=== PATIENT | female | born 1955 | race Caucasian/White ===

== ENCOUNTER 2024-10-16 10:24 | Inpatient (IN) | payer MEDICARE, OTHER, SELFPAY ==
[2024-10-16] VITALS (7 sets, daily range): BP systolic 119–144; BP diastolic 63–79; PULSE 98–117; RESP 17–96; TEMP 36.7–37.3; O2SAT 93–98; BMI 45.4
--- NOTE | 2024-10-16 11:05 | XR_ITS ---
Examination: CT abdomen with intravenous contrast CT pelvis with intravenous contrast 2-D coronal reconstructions 2-D sagittal reconstructions Date and time of exam:October 16, 2024, 1413 hours, comparison August 28, 2021 INDICATIONS: Onset right lower abdominal pain with nausea and vomiting today. CTDI: vol (mGy) 24.2 DLP: (mGycm) 1500 Technique: Multiple axial sections of the abdomen and pelvis have been obtained. 64 slice high-resolution scanner used. 3 mm axial sections have been obtained, post intravenous injection 60 cc [id number] 2-D sagittal, coronal reconstructions obtained. Low dose protocols were performed. One or more of the following dose reduction techniques were used; automated exposure control, adjustment of the mA and/or KV according to patient size, use of iterative reconstruction technique. Findings: Fatty infiltration throughout the liver, no focal liver lesions No gallstones, gallbladder is distended Spleen not enlarged No pancreatic or adrenal mass Mild perinephric stranding Aorta normal size No pericecal inflammatory change 5.6 cm umbilical hernia containing colon, no incarcerated bowel or bowel obstruction No diverticulitis Absent uterus Contracted urinary bladder Severe osteopenia, chronic erosive changes at symphysis IMPRESSION: Mild perinephric stranding No pericecal inflammatory change. 5.6 cm umbilical hernia containing colon but no incarcerated bowel or bowel obstruction No diverticulitis No bowel obstruction Distended gallbladder, recommend hepatobiliary sonography follow-up
--- NOTE | 2024-10-16 11:15 | EDNOTE_ITS ---
ED Abdominal Pain RME/HPI General Chief Complaint: Abdominal Pain Stated complaint: RIGHT LOWER ABD PAIN FOR 2 DAYS,SENT BY PMD Time seen by provider: 10/16/24 11:00 Arrival date/time: 10/16/24 10:24 Source: patient and family Mode of arrival: ambulatory Limitations: no limitations RME / HPI RME / HPI narrative: Patient is a 69-year-old female who is sent here by her primary doctor for assessment of right lower quadrant pain. She has obesity but no other medical illness. She does not take any diabetic medications or antihypertensive. She has no history of renal disease. She denies any past surgeries. She is here today with a 2-day history of right lower quadrant pain, nausea, vomiting. She denies any changes in bowel Eric. Has no flank pain or dysuria. She endorses chills. She has no other acute complaints. Related Data Home Medications ?Medication ?Instructions ?Recorded ?Confirmed clobetasol 0.05 % topical cream 1 applic topical BID 0 08/22/21 08/22/21 Previous Rx's ?Medication ?Instructions ?Recorded ferrous sulfate 325 mg (65 mg 325 mg PO BID #60 tabs 0 08/30/21 iron) tablet hydrocodone 5 mg-acetaminophen 325 1 tab PO Q8H PRN pa in #10 tabs 08/30/21 mg tablet Allergies Allergy/AdvReac Type Severity Reaction Status Date / Time latex Allergy Severe Hives Verified 10/16/24 10:26 Review of Systems Review of Systems Systems Reviewed: All systems reviewed, normal except as documented ED Exam General Limitations: Present no limitations General appearance: Present alert and other (Patient is ill-appearing, she is diaphoretic, but nontoxic-appearing.) Head Head exam: Present atraumatic Eye Eye exam: Present normal appearance, PERRL and EOMI ENT ENT exam: Present normal exam, normal oropharynx and mucous membranes moist Neck Neck exam: Present normal inspection, full ROM and trachea midline Chest Chest inspection: Present normal inspection and symmetric chest wall rise Respiratory Respiratory exam: Present normal lung sounds bilaterally Cardiovascular Cardiovascular exam: Present tachycardia and normal heart sounds Abdominal Exam Abdominal exam: Present soft, distention, tenderness, guarding and normal bowel sounds Extremities Exam Extremities exam: Present normal inspection and full ROM Back Exam Back exam: Present normal inspection and full ROM Neurological Exam Neurological exam: Present alert and oriented X3 Psychiatric Psychiatric exam: Present normal affect and normal mood Skin Skin exam: Present intact, normal color and diaphoresis Course Course Course Narrative: 13:30, reviewed patient's labs, she has a leukocytosis. This in addition to her tachycardia triggered our sepsis alert. Additional workup and interventions were requested. Quality Measures none Orders Category Date Time Status COVID-19 Screening Questionnaire NOW Care 10/16/24 21:[address] Screening NOW Care 10/16/24 11:06 Active Decision to Admit X1 Care 10/16/24 21:58 Completed IV [Insert IV] NOW Care 10/16/24 11:05 Completed Consult to General Surgery Stat Cons 10/16/24 21:[address] abdomen pelvis w con Stat Exams 10/16/24 11:05 Completed US abdomen limited Stat Exams 10/16/24 18:06 Completed XR chest 1V Stat Exams 10/16/24 13:36 Completed Blood Culture (Lab) Stat Lab 10/16/24 14:10 Results CBC Stat Lab 10/16/24 12:05 Completed CMP [Comprehensive Metabolic Panel] Stat Lab 10/16/24 12:05 Completed Lactic Acid [Lactate (Lactic Acid)] Stat Lab 10/16/24 12:05 Completed Lactic Acid, 3 HR Stat Lab 10/16/24 17:05 Completed Lipase Stat Lab 10/16/24 12:05 Completed UA, C/S IF [Urinalysis, C/S if Indicated] Stat Lab 10/16/24 17:29 Completed Morphine Inj Med 10/16/24 11:05 Discontinued 4 mg IVP X1 ONE Ondansetron Inj [Zofran Inj] Med 10/16/24 11:05 Discontinued 4 mg IVP X1 ONE Piper/Tazo Inj [Zosyn Inj] 4.5 gm Med 10/16/24 22:00 Active Sodium Chloride 0.9% (Pop) [NS 0.9% mini bag] 100 ml IV Q8HR Piper/Tazo Inj [Zosyn Inj] 4.5 gm Med 10/16/24 13:45 Discontinued Sodium Chloride 0.9% (Pop) [NS 0.9% mini bag] 100 ml IV X1 Ringers Lactated 1000 ml [Lactated Ringers] 1,000 ml Med 10/16/24 17:25 Discontinued IV 999 mls/hr Ringers Lactated 1000 ml [Lactated Ringers] 1,000 ml Med 10/16/24 17:25 Discontinued IV 999 mls/hr Ringers Lactated 1000 ml [Lactated Ringers] 1,000 ml Med 10/16/24 17:25 Discontinued IV 999 mls/hr Ringers Lactated 1000 ml [Lactated Ringers] 1,917 ml Med 10/16/24 13:35 Discontinued IV 1,917 mls/hr Sodium Chloride 0.9% 1000 ml [Ns] 1,000 ml Med 10/16/24 11:07 Discontinued IV 999 mls/hr Vital Signs Vital signs: Vital Signs Temperature 98.4 F 10/16/24 12:03 Pulse Rate 117 H 10/16/24 12:03 Respiratory Rate 18 10/16/24 12:03 Blood Pressure 123/79 10/16/24 12:03 Pulse Oximetry (%) 97 10/16/24 12:03 Oxygen Delivery Method Room Air 10/16/24 12:03 Abdominal Pain MDM MDM Narrative MDM Narrative:: Patient is a 69-year-old female who is sent here by her primary doctor for assessment of right lower quadrant pain. She has obesity but no other medical illness. She does not take any diabetic medications or antihypertensive. She has no history of renal disease. She denies any past surgeries. She is here today with a 2-day history of right lower quadrant pain, nausea, vomiting. She denies any changes in bowel Eric. Has no flank pain or dysuria. She endorses chills. She has no other acute complaints. On exam patient is ill-appearing but nontoxic-appearing. She is diaphoretic and tachycardic. Abdomen is soft, there is no guarding or rebound tenderness. Workup was initiated. Patient was found to have a leukocytosis of 19.6 K. Her hemoglobin hematocrit are stable at 16.7 and 48.8. CBC is otherwise unremarkable. Patient's glucose is 127, liver functions are within normal limits. Bilirubin is unremarkable. Initial lactic acid is 2.5. Repeat lactic acid was 5.4. And has CT abdomen pelvis was obtained which revealed mild perinephric stranding, nonincarcerated umbilical hernia, distended gallbladder and an ultrasound was recommended. Ultrasound was obtained which revealed distended gallbladder with gallbladder sludge no cholelithiasis or cholecystitis. There is hepatomegaly with hepatocellular disease noted. Dr Conley with general surgery was contacted and the case were discussed. He will follow the patient tomorrow. Will admit to medicine. Our [facility] hospitalist team was contacted at [phone] and will come down to the ER to discuss the patient. Patient data External records reviewed:: EMS form Clinical information provided by:: patient and EMS Social determinants that could affect healthcare access:: none Patient has the following chronic illnesses:: Morbid obesity How is presenting disease/condition affected by chronic disease/condition?: uneffected by Evaluation data The following diagnostics were reviewed and interpreted by me:: lab results and radiology exam(s) Lab and/or radiology exams considered but not ordered:: n/a Interpretation Summary: -c- Medications / Prescriptions Medications or Prescriptions considered but not ordered:: n/a Medication administrations:: Medication Administration History Acetaminophen (Acetaminophen 325 Mg Tablet) 650 mg PO Q6H PRN PRN Reason: Mild Pain 1-3 or Fever >100.3 Stop: 11/15/24 22:36 Hydrocodone Bitart/Acetaminophen (Hydrocodone/Apap 5/325 Tablet) 1 tab PO Q4HR PRN PRN Reason: PAIN SCALE 4-6 (Moderate Stop: 10/21/24 22:36 Last Admin: 10/17/24 10:14 Dose: 1 tab Documented By: Admin: 10/17/24 05:17 Dose: 1 tab Documented By: Admin: 10/16/24 22:57 Dose: 1 tab Documented By: JENNIE Famotidine (Famotidine 20 Mg Tablet) 20 mg PO BID [facility] Stop: 11/16/24 08:59 Last Admin: 10/17/24 10:14 Dose: 20 mg Documented By: TOBY Heparin Sodium (Porcine) (Heparin Sod Inj 5000 Unit/Ml Vial) 5,000 unit SC Q12HR [facility] Stop: 10/31/24 08:59 Last Admin: 10/17/24 10:21 Dose: Not Given Documented By: TOBY Non-Admin Reason: Patient Refused Hydromorphone HCl (Hydromorphone Inj 2 Mg/Ml Vial) 1 mg IVP Q6HR PRN PRN Reason: PAIN SCALE 7-10 (Severe Stop: 10/21/24 22:36 Piperacillin Sod/Tazobactam (Sod 4.5 gm/ Sodium Chloride) 100 mls @ 25 mls/hr IV Q8HR [facility] Stop: 10/23/24 21:59 Last Admin: 10/17/24 06:14 Dose: 25 mls/hr Documented By: Infusion: 10/17/24 03:39 Dose: Infused Documented By: Admin: 10/16/24 22:36 Dose: 25 mls/hr Documented By: BD Lactated Ringer's (Lactated Ringers) 1,000 mls @ 60 mls/hr IV .[id number] ONE Stop: 10/17/24 15:28 Last Admin: 10/17/24 03:51 Dose: Not Given Documented By: BD Non-Admin Reason: Other, see note Ondansetron HCl (Ondansetron Inj 2 Mg/Ml Inj 2 Ml) 4 mg IVP Q6H PRN; Protocol PRN Reason: NAUSEA OR VOMITING Stop: 11/15/24 22:36 Discontinued Medications Sodium Chloride (Ns) 1,000 mls @ 999 mls/hr IV .Q1H1M ONE Stop: 10/16/24 12:07 Last Infusion: 10/16/24 14:35 Dose: Infused Documented By: Admin: 10/16/24 13:34 Dose: 999 mls/hr Documented By: ED Lactated Ringer's (Lactated Ringers) 1,917 mls @ 1,917 mls/hr 30 ml/kg infuse over 60 min (1917 ml) IV .Q1H ONE Stop: 10/16/24 14:34 Last Infusion: 10/16/24 16:22 Dose: Infused Documented By: Admin: 10/16/24 15:22 Dose: 1,917 mls/hr Documented By: ED Piperacillin Sod/Tazobactam (Sod 4.5 gm/ Sodium Chloride) 100 mls @ 200 mls/hr IV X1 ONE Stop: 10/16/24 14:14 Last Infusion: 10/16/24 14:49 Dose: Infused Documented By: Admin: 10/16/24 14:19 Dose: 200 mls/hr Documented By: ED Lactated Ringer's (Lactated Ringers) 1,000 mls @ 999 mls/hr IV .Q1H1M ONE Stop: 10/16/24 18:25 Last Admin: 10/16/24 18:16 Dose: Not Given Documented By: ED Non-Admin Reason: Cancelled by Provider Lactated Ringer's (Lactated Ringers) 1,000 mls @ 999 mls/hr IV .Q1H1M ONE Stop: 10/16/24 18:25 Last Admin: 10/16/24 18:14 Dose: Not Given Documented By: ED Non-Admin Reason: Cancelled by Provider Lactated Ringer's (Lactated Ringers) 1,000 mls @ 999 mls/hr IV .Q1H1M ONE Stop: 10/16/24 18:25 Last Admin: 10/16/24 18:14 Dose: Not Given Documented By: ED Non-Admin Reason: Cancelled by Provider Sodium Chloride (Ns) 1,000 mls @ 999 mls/hr IV .Q1H1M ONE Stop: 10/16/24 23:44 Last Infusion: 10/17/24 06:18 Dose: Infused Documented By: Admin: 10/16/24 22:57 Dose: 999 mls/hr Documented By: BD Sodium Chloride (Ns) 1,000 mls @ 999 mls/hr IV .Q1H1M ONE Stop: 10/16/24 23:45 Last Infusion: 10/17/24 06:18 Dose: Infused Documented By: Admin: 10/16/24 22:57 Dose: 999 mls/hr Documented By: BD Lactated Ringer's (Lactated Ringers) 1,000 mls @ 125 mls/hr IV .Q8H ONE Stop: 10/17/24 06:48 Last Infusion: 10/17/24 03:53 Dose: 60 mls/hr Documented By: Admin: 10/17/24 00:27 Dose: 125 mls/hr Documented By: BD Vancomycin/Sodium Chloride (Vancomycin/Ns 1 Gm Ivpb) 200 mls @ 120 mls/hr IV Q100M [facility]ENKAT Stop: 10/17/24 08:04 Last Admin: 10/17/24 08:24 Dose: Not Given Documented By: DB Non-Admin Reason: Cancelled by Provider Infusion: 10/17/24 07:05 Dose: Infused Documented By: Admin: 10/17/24 05:10 Dose: 120 mls/hr Documented By: BD Comments: had to mix as not available in [facility] Vancomycin HCl (Vancomycin/Water 1gm Ivpb) 200 mls @ 120 mls/hr IV X1 ONE Stop: 10/17/24 09:39 Last Admin: 10/17/24 10:16 Dose: 120 mls/hr Documented By: TOBY Comments: Patient arrived to unit at 0930. Dose not administered in ER. late dose administered at 1017. Morphine Sulfate (Morphine Sulf Inj 10 Mg/Ml Vial) 4 mg IVP X1 ONE Stop: 10/16/24 11:06 Last Admin: 10/16/24 13:33 Dose: 4 mg Documented By: ED Ondansetron HCl (Ondansetron Inj 2 Mg/Ml Inj 2 Ml) 4 mg IVP X1 ONE; Protocol Stop: 10/16/24 11:06 Last Admin: 10/16/24 13:28 Dose: 4 mg Documented By: ED Pharmacy Consult (Vancomycin Pharmacy To Dose 1 Each Each) 1 each IV QDAY PRN PRN Reason: CONSULT Stop: 11/16/24 08:59 Vancomycin HCl (Vancomycin Inj 1,000 Mg Vial) Confirm Administered Dose 1,000 mg .ROUTE .STK-MED ONE Stop: 10/17/24 05:01 Last Admin: 10/17/24 05:06 Dose: Not Given Documented By: BD Non-Admin Reason: Other, see note See above Consultations Consultation(s) initiated? (list below): Yes Diagnosis Differential diagnosis abdominal pain: abdominal pain Most likely diagnosis given after review of the tests above:: Sepsis, lactic acidosis, leukocytosis Admission Indicated Admission indicated?: indicated Admission Request Was there a request for admission?: No Disposition Plan Disposition Plan: Admit Discharge Plan Plan Patient Disposition: Admit Acute Care w/in Hospital Patient condition on transfer: Stable Problem List Clinical Impression: Sepsis, Abdominal pain, Acidosis, lactic, Leukocytosis
[2024-10-16 12:11] LABS: Lactate (Lactic Acid) 2.5 mMol/L (0.4-2.0)
[2024-10-16 12:13] LABS: Basophils # (Auto) 0.1 Thou/mm3 (0.0-0.2); Basophils % (Auto) 0 % (0-2.5); Eosinophils # (Auto) 0.0 Thou/mm3 (0.0-0.5); Eosinophils % (Auto) 0 % (0-10); Hematocrit 48.8 % (36.0-46.0); Hemoglobin 16.7 g/dL (12.0-16.0); Immature Granulocytes Auto 0.17 Thou/mm3 (0.00-0.00); Lymphocytes # (Auto) 1.4 Thou/mm3 (1.0-4.8); Lymphocytes % (Auto) 7 % (10-50); Mean Corpuscular HGB Conc 34.2 g/dl (31.0-37.0); Mean Corpuscular Hemoglobin 31.5 pg (25.0-35.0); Mean Corpuscular Volume 92 fL (80-100); Monocytes # (Auto) 0.9 Thou/mm3 (0.0-0.8); Monocytes % (Auto) 5 % (0-12); Neutrophils # (Auto) 17.1 Thou/mm3 (1.8-7.7); Neutrophils % (Auto) 87 % (37-80); Nucleated Red Blood Cell # 0.00 Thou/mm3 (0.00-0.00); Nucleated Red Blood Cell % 0 /100 WBC (0); Platelet Count 191 Thou/mm3 (140-440); RDW Standard Deviation 48.5 fL (36.4-46.3); Red Blood Count 5.30 Miln/mm3 (4.00-5.20); White Blood Count 19.6 Thou/mm3 (3.6-11.0)
[2024-10-16 12:33] LABS: Alanine Aminotransferase 33 U/L (10-49); Albumin, Serum 4.1 gm/dL (3.4-4.8); Albumin/Globulin Ratio 1.3 (1.2-2.2); Alkaline Phosphatase 90 U/L (46-116); Anion Gap 13 (7-16); Aspartate Amino Transferase 28 U/L (0-34); BUN/Creatinine Ratio 9 Ratio (12-20); Bilirubin,Total 0.7 mg/dL (0.3-1.2); Blood Urea Nitrogen 12 mg/dL (9-23); Calcium 10.0 mg/dL (8.3-10.6); Calcium (Corrected) 10.0 mg/dL (8.5-10.1); Carbon Dioxide 22.7 mMol/L (20.0-31.0); Chloride 99 mMol/L (98-107); Creatinine (Component) 1.3 mg/dL (0.6-1.3); Estimated Creatinine Clearance 61.4 mL/min (>60); Globulin 3.2 gm/dL (2.3-3.5); Glucose 127 mg/dL (74-106); Lipase 17 U/L (12-53); Osmolality,Calculated 271 (275-295); Potassium 3.9 mMol/L (3.4-5.1); Sodium 135 mMol/L (136-145); Total Protein 7.3 gm/dL (5.7-8.2); eGFR 45 See Note
[2024-10-16] MEDS: ONDANSETRON INJ 2 MG/ML INJ 2 ML 4 MG IVP (13:28)
[2024-10-16] MEDS: MORPHINE SULF INJ 10 MG/ML VIAL 4 MG IVP (13:33)
[2024-10-16] MEDS: SODIUM CHLORIDE 0.9% 1000 ML 1,000 ML 999 ML IV ×3 (13:34→22:57)
--- NOTE | 2024-10-16 13:36 | XR_ITS ---
Examination: AP chest single view TECHNIQUE: AP portable upright chest single view Date and time: October 16, 2024 1348 hours, comparison August 28, 2021 INDICATIONS: Shortness of breath fever sepsis today. FINDINGS: Normal heart size. No pneumonia or pulmonary edema. Moderate osteopenia. IMPRESSION: No pneumonia or pulmonary edema
--- NOTE | 2024-10-16 13:40 | PC.NURSE ---
Pt. here from home to room 18, pt. states she has pain in her lady parts since Saturday. Pt. states she started vomiting yesterday X 3 and X 3 today. Pt. states she had a BM on Saturday and it was normal. Pt. states she is taking Semaglutide to loose weight. No s/s of distress noted at this time, pt.'s is bedside. Pt. denies any pain or burning with urination.
[2024-10-16] MEDS: PIPER/TAZO INJ 4.5 GM in SODIUM CHLORIDE 0.9% (POP) 100 ML IV ×2 (14:19→22:36)
[2024-10-16 15:08] LABS: Reflex Lactate? Y
[2024-10-16] MEDS: RINGERS LACTATED 1917 ML IV (15:22)
[2024-10-16 17:15] LABS: Lactic Acid, 3 HR 5.4 mMol/L (0.4-2.0)
[2024-10-16 17:34] LABS: Collection Type, Urine Voided
[2024-10-16 17:48] LABS: Bacteria,Urine Rare; Bilirubin,Urine Negative (Negative); Blood,Urine 1+ (Negative); Clarity,Urine Clear (Clear/Hazy); Color,Urine Yellow (Lt Yel-Yel); Culture Indicated,Urine Not Indicated; Glucose, Urine Negative (Negative); Ketones,Urine 1+ (Negative); Leukocyte Esterase,Urine Positive (Negative); Nitrite,Urine Negative (Negative); PH,Urine 6.0 (5.0-7.0); Protein,Urine 1+ (Neg - Trace); RBC,Urine 26 /hpf (0-3); Squamous Epithelial Cell,Urine 8 /hpf (0-5); Urobilinogen,Urine Negative mg/dL (0.0-1.0); WBC,Urine 6 /hpf (0-5)
[2024-10-16 17:51] LABS: Specific Gravity,Urine 1.020 (1.001-1.035)
--- NOTE | 2024-10-16 18:06 | XR_ITS ---
Examination: Abdomen sonogram, Limited Date and time of exam: October 16, 2024, 2029 hours INDICATIONS: Distended gallbladder and CT abdomen study today Technique: Real-time gardner scale transabdominal sonographic images of the upper abdomen obtained. Findings: Distended gallbladder with gallbladder sludge No stones Normal gallbladder wall thickness Common bile duct 0.4 cm Pancreatic head 2.8 cm. Liver 21.0 cm fatty infiltration lobular contour Normal hepatopedal portal venous flow. Patent IVC IMPRESSION: Distended gallbladder, gallbladder sludge Negative for cholelithiasis, negative for cholecystitis. Significant hepatomegaly, primary hepatocellular disease pattern
[2024-10-16] MEDS: HYDROcodone/APAP 5/325 TABLET 1 TAB PO (22:57)
--- NOTE | 2024-10-16 23:28 | ESHP_ITS ---
Documentation for date of: 10/16/24 [facility] History of Present Illness History of present illness: CC: abdominal pain-->actually supra-pubic pain Patient is a 69-year-old female with limited past medical history of sciatic nerve pain, morbid obesity-BMI 45, and history of hernia-no surgical intervention planned per patient history. Patient presented to the emergency room with a chief complaint of right lower abdominal pain over the past 2 days. Pain located at the suprapubic region. Per patient's history, with foul- smelling urine and increased frequency. Patient denied dysuria. Patient denied previous STIs. Patient denied previous history of UTIs. Patient denied abdominal pain, denied abdominal pain at hernia site. Denied gallbladder pain. Denied pancreatic pain. Denied history of diarrhea. Denied emesis. Denied fevers or chills at home. Denied chest pain or shortness of breath. ER course: Vitals: BP 123/79, HR 117, RR 18, T98.4,, SPO2 97% on room air WBC count 19.6, hemoglobin 16.7, hematocrit 48.8, platelet count 191 CMP: NA 135, K3.9, BUN 12, creatinine 1.3 (LAMBERT, baseline 0.9) GFR 45 Lactic acid 2.5, repeat 5.4, third lactic acid ordered UA:*Positive RBC 26, WBC 6 Chest x-ray negative Abdomen CT: Mild perinephric stranding, 5.6 umbilical hernia containing colon but not incarcerated bowel or obstruction (per patient history chronic). No diverticulitis. No bowel obstruction. Distened gallbladder. DR. Conley Consulted. No acute surgical intervention. Meds given in ER: Morphine, zofran, 3 Liter bolus & Zosyn Additional 2 liters given & Maintenance fluid started PMH: Same as above Past Surgical History: Hysterectomy Past Family History: can not recall Home Medication: Semaglutide pending medication reconciliation Social History: Denied Illicit Drug Use Denied Alcohol Allergies: Latex Allergy Code Status: Full Code Patient admitted for sepsis secondary to UTI w/ LAMBERT. Review of Systems Review of Systems Narrative Review of Systems: General appearance: NO weight change, NO fatigue, NO weakness, NO fever, NO chills, NO night sweats, No cough Skin: NO rash, NO itching, NO sores, NO moles HEENT: NO Trauma, NO nausea, NO vomiting, NO visual changes, NO blurry vision, NO double vision, NO tinnitus, NO vertigo, NO ear discharge, NO rhinorrhea, NO stuffiness, NO sneezing, NO allergy, NO epistaxis. NO Hoarseness, NO sore throat, NO swollen neck. Cardiac: NO Palpitations, NO dyspnea on exertion, NO orthopnea, NO paroxysmal nocturnal dyspnea, NO edema Respiratory: NO Shortness of Breath, NO Wheezing, NO Cough, NO Sputum, NO hemoptysis GI:NO appetite, NO nausea, NO vomiting, NO dysphagia, NO changes in bowel frequency, NO stool color, NO diarrhea, NO constipation, NO hemetemesis, NO hemorrhoids, NO melena, NO hematechezia, NO abdominal pain, NO jaundice Renal: YES frequency, Suprapubic Pain YES, and foul smelling, No hesitancy, urgency, NO hematuria, NO nocturia, NO incontinence MSK: NO muscle weakness, NO gout, NO arthritis, NO muscle stiffness Neuro: NO headaches, NO tremors, NO weakness, NO paralysis, NO seizures, NO loss of consciousness, NO numbness. Hem: NO anemia, NO easy bruising/bleeding, NO petechiae, NO purpura Endo: NO heat/cold intolerance, NO excessive sweating, NO polyuria, NO polydipsia, NO polyphagia, NO thyroid problems, NO diabetes Pysch: NO mood, NO anxiety, NO depression Exam Vital Signs Temp Pulse Resp BP Pulse Ox O2 Del Method 99.2 F 100 18 132/63 H 93 L Room Air 10/16/24 21:26 10/16/24 23:00 10/16/24 23:00 10/16/24 21:26 10/16/24 21:10/16/24 21:26 Narrative Exam General Appearance: Alert & Oriented X3, well-nourished female who is lying in bed in no acute distress HEENT: Skull symmetrical and atraumatic. Conjunctivae pin and moist. Pupils equal, round, reactive to light and accommodation (PERRL). External ear without lesion or discharge. Cardio: Normal Rate and Rhythm with S1 and S2 heart sounds. No murmurs or extra heart sounds auscultated. No bruits on carotid auscultation. No peripheral edema or cyanosis. Lungs: Symmetric with good expansion. Chest and back non-tender. Breath sounds vesicular without crackles, wheezing or rhonchi Abdomen: Non-tender, Non-distended, Normal Reactive Bowel Sounds, supra-pubic tenderness, denied abdominal pain. negative reilly sign. Neuro: Alert, cooperative, oriented to person, place, and time. Speech clear. CN grossly intact. Upper motor strength 5/5 and Lower motor strength 5/5. Sensation intact. Results: Labs 10/16/24 12:05 10/16/24 12:05 Labs: Short CBC 10/16/24 Range/Units 12:05 WBC 19.6 H (3.6-11.0) Thou/mm3 Hgb 16.7 H (12.0-16.0) g/dL Hct 48.8 H (36.0-46.0) % Plt Count 191 (140-440) Thou/mm3 BMP 10/16/24 12:05 Sodium 135 L Potassium 3.9 Chloride 99 Carbon Dioxide 22.7 BUN 12 Creatinine 1.3 Glucose 127 H Calcium 10.0 Liver Function 10/16/24 Range/Units 12:05 Total Bilirubin 0.7 (0.3-1.2) mg/dL AST 28 (0-34) U/L ALT 33 (10-49) U/L Alkaline Phosphatase 90 (46-116) U/L Albumin 4.1 (3.4-4.8) gm/dL Urine 10/16/24 Range/Units 17:29 Urine Color Yellow (Lt Yel-Yel) Urine Clarity Clear (Clear/Hazy) Urine pH 6.0 (5.0-7.0) Ur Specific [place] 1.020 (1.001-1.035) Urine Protein 1+ A (Neg - Trace) Urine Glucose (UA) Negative (Negative) Quality Measures Quality Measures VTE prophylaxis Advance care planning discussed with:: patient Medications Home Medications and Allergies Home Medications ?Medication ?Instructions ?Recorded ?Confirmed ?Type clobetasol 0.05 % topical cream 1 applic topical BID 0 08/22/21 08/22/21 History Allergies Allergy/AdvReac Type Severity Reaction Status Date / Time latex Allergy Severe Hives Verified 10/16/24 10:26 Visit Medications Acetaminophen (Acetaminophen 325 Mg Tablet) 650 mg PO Q6H PRN PRN Reason: Mild Pain 1-3 or Fever >100.3 Stop: 11/15/24 22:36 Hydrocodone Bitart/Acetaminophen (Hydrocodone/Apap 5/325 Tablet) 1 tab PO Q4HR PRN PRN Reason: PAIN SCALE 4-6 (Moderate Stop: 10/21/24 22:36 Last Admin: 10/16/24 22:57 Dose: 1 tab Famotidine (Famotidine 20 Mg Tablet) 20 mg PO BID [facility] Stop: 11/16/24 08:59 Heparin Sodium (Porcine) (Heparin Sod Inj 5000 Unit/Ml Vial) 5,000 unit SC Q12HR [facility] Stop: 10/31/24 08:59 Hydromorphone HCl (Hydromorphone Inj 2 Mg/Ml Vial) 1 mg IVP Q6HR PRN PRN Reason: PAIN SCALE 7-10 (Severe Stop: 10/21/24 22:36 Piperacillin Sod/Tazobactam (Sod 4.5 gm/ Sodium Chloride) 100 mls @ 25 mls/hr IV Q8HR [facility] Stop: 10/23/24 21:59 Last Admin: 10/16/24 22:36 Dose: 25 mls/hr Sodium Chloride (Ns) 1,000 mls @ 999 mls/hr IV .Q1H1M ONE Stop: 10/16/24 23:44 Last Admin: 10/16/24 22:57 Dose: 999 mls/hr Sodium Chloride (Ns) 1,000 mls @ 999 mls/hr IV .Q1H1M ONE Stop: 10/16/24 23:45 Last Admin: 10/16/24 22:57 Dose: 999 mls/hr Lactated Ringer's (Lactated Ringers) 1,000 mls @ 125 mls/hr IV .Q8H ONE Stop: 10/17/24 06:48 Ondansetron HCl (Ondansetron Inj 2 Mg/Ml Inj 2 Ml) 4 mg IVP Q6H PRN; Protocol PRN Reason: NAUSEA OR VOMITING Stop: 11/15/24 22:36 Discontinued Medications Sodium Chloride (Ns) 1,000 mls @ 999 mls/hr IV .Q1H1M ONE Stop: 10/16/24 12:07 Last Infusion: 10/16/24 14:35 Dose: Infused Lactated Ringer's (Lactated Ringers) 1,917 mls @ 1,917 mls/hr 30 ml/kg infuse over 60 min (1917 ml) IV .Q1H ONE Stop: 10/16/24 14:34 Last Infusion: 10/16/24 16:22 Dose: Infused Piperacillin Sod/Tazobactam (Sod 4.5 gm/ Sodium Chloride) 100 mls @ 200 mls/hr IV X1 ONE Stop: 10/16/24 14:14 Last Infusion: 10/16/24 14:49 Dose: Infused Lactated Ringer's (Lactated Ringers) 1,000 mls @ 999 mls/hr IV .Q1H1M ONE Stop: 10/16/24 18:25 Last Admin: 10/16/24 18:16 Dose: Not Given Lactated Ringer's (Lactated Ringers) 1,000 mls @ 999 mls/hr IV .Q1H1M ONE Stop: 10/16/24 18:25 Last Admin: 10/16/24 18:14 Dose: Not Given Lactated Ringer's (Lactated Ringers) 1,000 mls @ 999 mls/hr IV .Q1H1M ONE Stop: 10/16/24 18:25 Last Admin: 10/16/24 18:14 Dose: Not Given Morphine Sulfate (Morphine Sulf Inj 10 Mg/Ml Vial) 4 mg IVP X1 ONE Stop: 10/16/24 11:06 Last Admin: 10/16/24 13:33 Dose: 4 mg Ondansetron HCl (Ondansetron Inj 2 Mg/Ml Inj 2 Ml) 4 mg IVP X1 ONE; Protocol Stop: 10/16/24 11:06 Last Admin: 10/16/24 13:28 Dose: 4 mg Assessment & Plan Plan Patient is a 69-year-old female with limited past medical history of sciatic nerve pain, morbid obesity-BMI 45, and history of hernia-no surgical intervention planned per patient history who wad admitted for sepsis secondary to UTI and pyelonephritis w/ LAMBERT. #Sepsis secondary to UTI #SIRs Criteria (Tachy & WBC w/ source) #Pyelonephritis #UTI #Leukocytosis #lacitic Acidois Patient met SIRs criteria with tachy cardia, leukocytosis and sepsis criteria with lactic acidosis and end organ damage of LAMBERT. UTI positive and compalining of increased frequency w/ foul smelling urine. Mild perinephric stranding noted on CT [place]. Plan -Continue Zosyn, consider ceftriaxone in AM if improving -Blood Culutes & Urine Cultures -LR total 5 given & maitence fluid -Pain Manegment -Tylenol PRN #LAMBERT LAMBERT noted with rise in Cr >.3 from baseline, patient has had emesis and poor oral intake over the last several day vs intrinsic injury given BUN/CR <20 that may have developed as pre-renal and then progressed to intrinis injury given UTI and decrease oral intake vs obstructive, less likely no hydronephrosis noted on CT, but given BUN/cr can not be ruled out, consider follow up with bladder scan if poor output. Plan -LR @125-->decreased to LR 60, may d/c based on CMP -Strict Ins and Outs -Mg and Phos -Urine electrolytes and Urine Cr, may be skewed given large amounts of LR givne -avoid nephrotoxins -renally dose medication -consider bladder scan in decrease output #Distended Gallbladder Distended gallbladder likely secondary to obesity vs cholecystitis less, Reilly negative Plan -monitor AST/ALT -US Abdomen #umbilical hernia CT head noted containing colon but no incarcerated bowel or bowel obstruction which has been chronic. Denied pain and denied constipation. Dr. Conley, no acute surgical intervention planned for now. Plan -General Surgery Consulted, Dr. Conley, appreciate recommendations. #Morbid Obesity Patient may be takeing Wegovy (??)/Semaglutide, penidng medication recondilliation. Denied history of diabetes. Plan -pending medication reconcilliation #Sciatic History Denied Health Maintenance: Disp: Pt is currently admitted to floors for further management of sepsis secondary to UTI/Pyelonephritis and LAMBERT , awaiting urine and blood cultures. FEN: Cardiac Diet DVT: on subQ [id number] Code: Full Code - The patient's plan was discussed with attending Dr. Pacheco Pope MD PGY2 Internal Medicine Attending Provider Attestation/Addendum I have examined the patient, reviewed labs and imaging findings, discussed the case with the resident(s), and reviewed entered orders. I agree with the plan of care as outlined in this note, with these additional summaries/recommendations: After examination of the patient and review of the clinical data, I feel that this patient needs admission to the hospital for further treatment and evaluation. Patient is a pleasant 69-year-old female with a medical history of obesity, basal cell carcinoma, sciatica, hysterectomy, and chronic lower pelvic pain presents to [facility] emergency department on 10/16/2024 with chief complaint of lower abdominal pain and urinary symptoms. Patient seen at bedside. She endorses seeing whitish material in her urine. She reports increased urinary frequency but denies dysuria. Urinalysis indicative of UTI. CT of abdomen pelvis shows mild perinephric fat stranding. Patient diagnosed with sepsis secondary to pyelonephritis/urinary tract infection. On admission WBC 19.6 with left shift. Evidence of endorgan damage with LAMBERT. 30 cc/kg ordered then continue IVF. Order blood and urine cultures, follow-up results when available. Start IV antibiotic. No need for source control or pressors at this time. Lactic acidosis present which is most likely type A from sepsis. Continue IV fluids and follow-up repeat lactic level. Tylenol as needed for fever. Patient diagnosed with LAMBERT. On admission creatinine 1.3 and BUN 12. Baseline creatinine 0.9. Most likely secondary to prerenal azotemia in the setting of sepsis. Continue IV fluids, avoid nephrotoxic agents, and renally dose medications. Patient was noted to have a distended on imaging although no right upper quadrant pain, negative Reilly's, and LFTs within normal limits. No evidence of cholecystitis on abdominal ultrasound. Patient updated on the plan and in agreement. All questions answered to satisfaction. Please see residents note for additional details and management. Dr. Pacheco MD
[2024-10-16 23:33] LABS: Lactate (Lactic Acid) 1.4 mMol/L (0.4-2.0)
[2024-10-17] VITALS (11 sets, daily range): BP systolic 105–168; BP diastolic 66–91; PULSE 78–100; RESP 18–97; TEMP 36.3–36.9; O2SAT 94–98; BMI 47.9; BMI 48.1
[2024-10-17] MEDS: RINGERS LACTATED 1000 ML 1,000 ML 125 ML IV (00:27)
--- NOTE | 2024-10-17 03:51 | PC.LAC ---
called as new order for LR is at 60 ml/hr, pt leila has bag going at 125 ml/hr not admin new bag just decreasing the rate to 60 ml/hr for bag currently going. ok per provider
--- NOTE | 2024-10-17 05:07 | PC.NURSE ---
overrode vanco as not available in [facility] non admin the stck on mar
[2024-10-17] MEDS: VANCOMYCIN/NS 1 GM IVPB 200 ML IV (05:10)
[2024-10-17] MEDS: HYDROcodone/APAP 5/325 TABLET 1 TAB PO ×3 (05:17→18:35)
[2024-10-17 05:23] LABS: Basophils # (Auto) 0.0 Thou/mm3 (0.0-0.2); Basophils % (Auto) 0 % (0-2.5); Eosinophils # (Auto) 0.0 Thou/mm3 (0.0-0.5); Eosinophils % (Auto) 0 % (0-10); Hematocrit 45.1 % (36.0-46.0); Hemoglobin 14.7 g/dL (12.0-16.0); Immature Granulocytes Auto 0.14 Thou/mm3 (0.00-0.00); Lymphocytes # (Auto) 1.5 Thou/mm3 (1.0-4.8); Lymphocytes % (Auto) 10 % (10-50); Mean Corpuscular HGB Conc 32.6 g/dl (31.0-37.0); Mean Corpuscular Hemoglobin 30.6 pg (25.0-35.0); Mean Corpuscular Volume 94 fL (80-100); Monocytes # (Auto) 0.5 Thou/mm3 (0.0-0.8); Monocytes % (Auto) 3 % (0-12); Neutrophils # (Auto) 13.5 Thou/mm3 (1.8-7.7); Neutrophils % (Auto) 86 % (37-80); Nucleated Red Blood Cell # 0.00 Thou/mm3 (0.00-0.00); Nucleated Red Blood Cell % 0 /100 WBC (0); Platelet Count 146 Thou/mm3 (140-440); RDW Standard Deviation 50.5 fL (36.4-46.3); Red Blood Count 4.81 Miln/mm3 (4.00-5.20); White Blood Count 15.6 Thou/mm3 (3.6-11.0)
[2024-10-17 05:45] LABS: Alanine Aminotransferase 30 U/L (10-49); Albumin, Serum 3.4 gm/dL (3.4-4.8); Albumin/Globulin Ratio 1.3 (1.2-2.2); Alkaline Phosphatase 84 U/L (46-116); Anion Gap 11 (7-16); Aspartate Amino Transferase 33 U/L (0-34); BUN/Creatinine Ratio 13 Ratio (12-20); Bilirubin,Total 0.5 mg/dL (0.3-1.2); Blood Urea Nitrogen 14 mg/dL (9-23); Calcium 9.1 mg/dL (8.3-10.6); Calcium (Corrected) 9.6 mg/dL (8.5-10.1); Carbon Dioxide 23.1 mMol/L (20.0-31.0); Cardiac Risk Estimate 3.1 RATIO (3.7-5.6); Chloride 102 mMol/L (98-107); Cholesterol 110 mg/dL (132-200); Creatinine (Component) 1.1 mg/dL (0.6-1.3); Estimated Creatinine Clearance 72.5 mL/min (>60); Globulin 2.6 gm/dL (2.3-3.5); Glucose 108 mg/dL (74-106); HDL Cholesterol 36 mg/dL (40-60); LDL Cholesterol,Calculated 53 mg/dL (0-130); Magnesium 1.7 mg/dL (1.6-2.6); Osmolality,Calculated 273 (275-295); Phosphorous 3.8 mg/dL (2.4-5.1); Potassium 4.2 mMol/L (3.4-5.1); Sodium 136 mMol/L (136-145); Total Protein 6.0 gm/dL (5.7-8.2); Triglycerides 103 mg/dL (30-150); eGFR 55 See Note
[2024-10-17] MEDS: PIPER/TAZO INJ 4.5 GM in SODIUM CHLORIDE 0.9% (POP) 100 ML IV ×3 (06:14→21:01)
--- NOTE | 2024-10-17 08:52 | ESPR_ITS ---
<Statement entered by Ramsey Guzman MD - 10/17/24 16:15> Senior Resident Attestation: I supervised/discussed management plan with internal audit consultant physician Dr. Glover, and was involved in the care of this patient. I personally saw and examined the patient and discussed the assessment and plan with the entire medicine team, including my attending. I agree with the assessment and plan as documented. Patient reports her lower abdominal pain is improving. Her white cell count today 15.6. Vancomycin was discontinued and patient is continued only on Zosyn. Cultures are pending. Patient's care was discussed with attending physician, Dr. Barker. Ramsey Guzman MD PGY-3. Documentation for date of: 10/17/24 Subjective Subjective Interval history: VSS. Patient continues to endorse suprapubic pain. Denies N/V, diarrhea, chest pain, shortness of breath, cough, headache. Exam Vital Signs Temp Pulse Resp BP Pulse Ox O2 Del Method 98.4 F 86 20 105/66 97 Room Air 10/17/24 08:22 10/17/24 08:22 10/17/24 08:22 10/17/24 08:22 10/17/24 08:22 10/17/24 08:22 Narrative Exam General: No acute distress, well nourished, morbid obesity (BMI 47) Eye: PERRL, EOMI, normal conjunctiva, no scleral icterus HENT: Normocephalic, atraumatic, normal hearing, moist oral mucosa Neck: Supple, non-tender, no JVD, no lymphadenopathy Lungs: Clear to auscultation bilaterally, non-labored respirations, symmetric chest rise, no use of accessory muscles Heart: Normal S1 and S2, no S3 or S4 appreciated. Normal rate and regular rhythm, no murmurs, rubs gallops, or edema. Peripheral pulses intact bilaterally, capillary refill brisk distally Abdomen: Soft, + suprapubic TTP, Reilly's sign negative, non-distended, normal bowel sounds. No guarding or rebound tenderness. Musculoskeletal: Normal range of motion and strength, no tenderness or swelling Skin: Skin is warm, dry, no rashes or lesions. Neurologic: Alert, awake and oriented x3. CN II-XII grossly intact. No focal neuro deficits. No signs of meningeal irritation noted. Psychiatric: Cooperative, appropriate mood and affect Objective Labs 10/18/24 05:00 10/18/24 05:00 Labs: Laboratory Results - last 24 hr 10/16/24 10/16/24 10/16/24 12:05 17:05 17:29 WBC 19.6 H RBC 5.30 H Hgb 16.7 H Hct 48.8 H MCV 92 MCH 31.5 MCHC 34.2 RDW Std Deviation 48.5 H Plt Count 191 Neut % (Auto) 87 H Lymph % (Auto) 7 L [place] % (Auto) 5 Eos % (Auto) 0 Baso % (Auto) 0 Neut # (Auto) 17.1 H Lymph # (Auto) 1.4 [place] # (Auto) 0.9 H Eos # (Auto) 0.0 Baso # (Auto) 0.1 Immature Gran # (Auto) 0.17 H Absolute Nucleated RBC 0.00 Immature Gran % 1 H Nucleated RBC % 0 Sodium 135 L Potassium 3.9 Chloride 99 Carbon Dioxide 22.7 Anion Gap 13 BUN 12 Creatinine 1.3 Estim Creat Clear Calc 61.4 eGFR 45 L BUN/Creatinine Ratio 9 L Glucose 127 H Calculated Osmolality 271 L Lactic Acid 2.5 H 5.4 H* Calcium 10.0 Corrected Calcium 10.0 Phosphorus Magnesium Total Bilirubin 0.7 AST 28 ALT 33 Alkaline Phosphatase 90 Total Protein 7.3 Albumin 4.1 Globulin 3.2 Albumin/Globulin Ratio 1.3 Triglycerides Cholesterol LDL Cholesterol, Calc HDL Cholesterol Cholesterol/HDL Ratio Lipase 17 Ur Collection Type Voided Urine Color Yellow Urine Clarity Clear Urine pH 6.0 Ur Specific [place] 1.020 Urine Protein 1+ A Urine Glucose (UA) Negative Urine Ketones 1+ A Urine Blood 1+ A Urine Nitrite Negative Urine Bilirubin Negative Urine Urobilinogen (Auto) Negative Ur Leukocyte Esterase Positive Urine RBC 26 H Urine WBC 6 H Ur Squamous Epith Cells 8 H Urine Bacteria Rare Ur Culture Indicated? Not Indicated 10/16/24 10/17/24 23:23 04:54 WBC 15.6 H RBC 4.81 Hgb 14.7 D Hct 45.1 MCV 94 MCH 30.6 MCHC 32.6 RDW Std Deviation 50.5 H Plt Count 146 D Neut % (Auto) 86 H Lymph % (Auto) 10 [place] % (Auto) 3 Eos % (Auto) 0 Baso % (Auto) 0 Neut # (Auto) 13.5 H Lymph # (Auto) 1.5 [place] # (Auto) 0.5 Eos # (Auto) 0.0 Baso # (Auto) 0.0 Immature Gran # (Auto) 0.14 H Absolute Nucleated RBC 0.00 Immature Gran % 1 H Nucleated RBC % 0 Sodium 136 Potassium 4.2 Chloride 102 Carbon Dioxide 23.1 Anion Gap 11 BUN 14 Creatinine 1.1 Estim Creat Clear Calc 72.5 eGFR 55 L BUN/Creatinine Ratio 13 Glucose 108 H Calculated Osmolality 273 L Lactic Acid 1.4 Calcium 9.1 Corrected Calcium 9.6 Phosphorus 3.8 Magnesium 1.7 Total Bilirubin 0.5 AST 33 ALT 30 Alkaline Phosphatase 84 Total Protein 6.0 Albumin 3.4 D Globulin 2.6 Albumin/Globulin Ratio 1.3 Triglycerides 103 Cholesterol 110 L LDL Cholesterol, Calc 53 HDL Cholesterol 36 L Cholesterol/HDL Ratio 3.1 L Lipase Ur Collection Type Urine Color Urine Clarity Urine pH Ur Specific [place] Urine Protein Urine Glucose (UA) Urine Ketones Urine Blood Urine Nitrite Urine Bilirubin Urine Urobilinogen (Auto) Ur Leukocyte Esterase Urine RBC Urine WBC Ur Squamous Epith Cells Urine Bacteria Ur Culture Indicated? Quality Measures Quality Measures VTE prophylaxis Advance care planning discussed with:: patient Assessment & Plan Assessment Current Active Medications: Generic Name Dose Route Start Last Admin Trade Name Freq PRN Reason Stop Dose Admin Acetaminophen 650 mg 10/16/24 22:37 Acetaminophen 325 Mg Tablet PO 11/15/24 22:36 Q6H PRN Mild Pain 1-3 or Fever >100.3 Hydrocodone Bitart/Acetaminophen 1 tab 10/16/24 22:37 10/17/24 05:17 Hydrocodone/Apap 5/325 Tablet PO 10/21/24 22:36 1 tab Q4HR PRN Administration PAIN SCALE 4-6 (Moderate Famotidine 20 mg 10/17/24 09:00 Famotidine 20 Mg Tablet PO 11/16/24 08:59 BID VENKAT Heparin Sodium (Porcine) 5,000 unit 10/17/24 09:00 Heparin Sod Inj 5000 Unit/Ml Vial SC 10/31/24 08:59 Q12HR VENKAT Hydromorphone HCl 1 mg 10/16/24 22:37 Hydromorphone Inj 2 Mg/Ml Vial IVP 10/21/24 22:36 Q6HR PRN PAIN SCALE 7-10 (Severe Piperacillin Sod/Tazobactam 100 mls @ 25 mls/hr 10/16/24 22:00 10/17/24 06:14 Sod 4.5 gm/ Sodium Chloride IV 10/23/24 21:59 25 mls/hr Q8HR VENKAT Administration Lactated Ringer's 1,000 mls @ 60 mls/hr 10/17/24 03:45 10/17/24 03:51 Lactated Ringers IV 10/17/24 15:28 Not Given .[id number] ONE Vancomycin HCl 200 mls @ 120 mls/hr 10/17/24 08:00 Vancomycin/Water 1gm Ivpb IV 10/17/24 09:39 X1 ONE Ondansetron HCl 4 mg 10/16/24 22:37 Ondansetron Inj 2 Mg/Ml Inj 2 Ml IVP 11/15/24 22:36 Q6H PRN NAUSEA OR VOMITING Protocol Pharmacy Consult 1 each 10/17/24 09:00 Vancomycin Pharmacy To Dose 1 Each Each IV 11/16/24 08:59 QDAY PRN CONSULT Plan Patient is a 69-year-old female with limited past medical history of sciatic nerve pain, morbid obesity-BMI 45, and history of hernia-no surgical intervention planned per patient history who wad admitted for sepsis secondary to UTI and pyelonephritis w/ LAMBERT. #Sepsis #UTI #Pyelonephritis Pt met SIRS criteria w/ tachycardia, leuklocytosis + evidence of end-organ damage w/ LAMBERT + source of infection UTI/pyelonephritis Patient reports foul smelling urine, suprapubic pain. Denies CVA tenderness. Mild perinephric stranding noted on CT [place]. Given 5L LR --> lactic acid downtrending Plan: - Continue Zosyn 4.5 g IV q8h (10/16 - ) - Pending blood and urine cx #LAMBERT Baseline Cr 1 BUN 12, Cr 1.3 Most likely prerenal i/s/o sepsis and poor PO intake past several days Plan - CTM with daily CMP - Strict I&Os - Urine electrolytes and Urine Cr - Avoid nephrotoxins - Renally dose medication #Distended Gallbladder Distended gallbladder likely secondary to obesity vs cholecystitis less, Reilly negative No surgical intervention required at this time, per Dr. Conley Plan: - CTM with daily CMP #Umbilical hernia 5.6 umbilical hernia containing colon but not incarcerated bowel or obstruction seen on CT abd No surgical intervention required at this time, per Dr. Conley Plan - CTM with daily abdominal exams #Morbid Obesity Patient taking Semaglutide Plan: - Hold home Semaglutide - F/U outpatient management - Pending lipid panel, A1C, TSH #Sciatic History Plan: - CTM Checklist Dispo: UTI/pyelonephritis mgmt Diet: Cardiac Bowel Reg: Doc-senna daily PRN VTE ppx: heparin 5000U subQ q12h GI ppx: Famotidine 20 mg PO BID Pain mgmt:Tylenol PRN, [place] 5/325 PO, dilaudid 1 mg IV q6h Code status: full Plan discussed with Dr. Guzman and VASYL Mckeon PGY1 Attending Provider Attestation/Addendum I Bong Barker MD reviewed the note and agree with the resident's assessment & plan with modifications/additions/exceptions as below. I have personally reviewed labs, imaging, home meds/prior records, examined the patient, formulated and discussed management plan with the IM team. A 69-year-old female with history of cirrhosis presented to ED with flank pain noted to have sepsis with lactic acidosis. Need to be in mild leukocytosis. CT abdomen/pelvis did reveal pyelonephritis without any hydronephrosis. Continue IV fluid resuscitation, continue Zosyn and vancomycin, follow urine cultures, blood cultures & , inflammatory markers.
[2024-10-17] MEDS: FAMOTIDINE 20 MG TABLET PO ×2 (10:14→21:01)
[2024-10-17] MEDS: VANCOMYCIN/WATER 1GM IVPB 200 ML IV (10:16)
--- NOTE | 2024-10-17 13:14 | ESCONSULT_ITS ---
HPI Consult details Consult date: 10/17/24 Reason for consultation narrative: Gallbladder sludge History of present illness: 69-year-old morbidly obese female was admitted with suprapubic pain. She has history of foul-smelling urine and increased urine frequency. She denies upper abdominal pain, she has been eating and tolerating food without nausea or vomiting. Ultrasound showed gallbladder sludge without evidence of cholecystitis. She has also had chronic supraumbilical hernia that has been reducible without evidence of bowel obstruction. Review of Systems Constitutional Constitutional: Denies chills and Denies fever(s) Cardiovascular Cardiovascular: Denies chest pain Respiratory Respiratory: Denies cough Gastrointestinal Gastrointestinal: Denies abdominal pain, Denies nausea and Denies vomiting Hematologic/Lymphatic Hematologic/Lymphatic: Denies easy bleeding and Reports easy bruising Past Medical History Surgical History OTHER SURGICAL HX: Tonsillectomy, hysterectomy Social History SMOKING STATUS: Never smoker SUBSTANCE USE: does not use ALCOHOL: Never Meds Home Medications and Allergies Home Medications ?Medication ?Instructions ?Recorded ?Confirmed ?Type clobetasol 0.05 % topical cream 1 applic topical BID 0 08/22/21 08/22/21 History Allergies Allergy/AdvReac Type Severity Reaction Status Date / Time latex Allergy Severe Hives Verified 10/16/24 10:26 Exam Vital Signs Temp Pulse Resp BP Pulse Ox O2 Del Method 97.3 F 80 20 123/67 95 Room Air 10/17/24 12:00 10/17/24 12:00 10/17/24 12:00 10/17/24 12:00 10/17/24 12:00 10/17/24 12:00 Constitutional Constitutional: no acute distress Routine Abdominal Exam Comments: Abdomen is soft, nondistended and nontender. She has reducible supraumbilical hernia Assessment & Plan Additional Assessment Additional comments: Asymptomatic gallbladder sludge and reducible periumbilical hernia Plan There are no indications for urgent surgical intervention at this time. She can follow-up with a bariatric surgeon as an outpatient for repair of her hernia and removal of gallbladder if she becomes symptomatic.
[2024-10-17 23:14] LABS: Chloride,Urine Random 70.8 mMol/L (55.0-125.0); Creatinine,Random Urine 167 mg/dL (30-125); Potassium,Urine Random 91 mMol/L (12-62); Sodium,Urine Random 24.6 mMol/L (20.0-110.0)
[2024-10-18] VITALS (8 sets, daily range): BP systolic 103–150; BP diastolic 73–82; PULSE 81–93; RESP 15–98; TEMP 35.9–36.6; O2SAT 93–99
[2024-10-18] MEDS: HYDROcodone/APAP 5/325 TABLET 1 TAB PO ×2 (00:25→05:07)
[2024-10-18] MEDS: PIPER/TAZO INJ 4.5 GM in SODIUM CHLORIDE 0.9% (POP) 100 ML IV ×3 (05:04→21:06)
[2024-10-18 06:04] LABS: Basophils # (Auto) 0.0 Thou/mm3 (0.0-0.2); Basophils % (Auto) 0 % (0-2.5); Eosinophils # (Auto) 0.4 Thou/mm3 (0.0-0.5); Eosinophils % (Auto) 3 % (0-10); Hematocrit 40.7 % (36.0-46.0); Hemoglobin 13.6 g/dL (12.0-16.0); Immature Granulocytes Auto 0.04 Thou/mm3 (0.00-0.00); Lymphocytes # (Auto) 1.9 Thou/mm3 (1.0-4.8); Lymphocytes % (Auto) 17 % (10-50); Mean Corpuscular HGB Conc 33.4 g/dl (31.0-37.0); Mean Corpuscular Hemoglobin 30.6 pg (25.0-35.0); Mean Corpuscular Volume 92 fL (80-100); Monocytes # (Auto) 0.4 Thou/mm3 (0.0-0.8); Monocytes % (Auto) 3 % (0-12); Neutrophils # (Auto) 8.7 Thou/mm3 (1.8-7.7); Neutrophils % (Auto) 76 % (37-80); Nucleated Red Blood Cell # 0.00 Thou/mm3 (0.00-0.00); Nucleated Red Blood Cell % 0 /100 WBC (0); Platelet Count 147 Thou/mm3 (140-440); RDW Standard Deviation 49.4 fL (36.4-46.3); Red Blood Count 4.44 Miln/mm3 (4.00-5.20); White Blood Count 11.3 Thou/mm3 (3.6-11.0)
[2024-10-18 06:30] LABS: Glucose Estimated Average 100 mg/dL (80-131); Hemoglobin A1C 5.1 % Hgb (4.8-6.0)
[2024-10-18 06:43] LABS: Alanine Aminotransferase 37 U/L (10-49); Albumin, Serum 3.1 gm/dL (3.4-4.8); Albumin/Globulin Ratio 1.3 (1.2-2.2); Anion Gap 11 (7-16); Aspartate Amino Transferase 38 U/L (0-34); BUN/Creatinine Ratio 15 Ratio (12-20); Bilirubin,Total 0.4 mg/dL (0.3-1.2); Blood Urea Nitrogen 12 mg/dL (9-23); Calcium 9.3 mg/dL (8.3-10.6); Calcium (Corrected) 10.0 mg/dL (8.5-10.1); Carbon Dioxide 21.5 mMol/L (20.0-31.0); Chloride 104 mMol/L (98-107); Creatinine (Component) 0.8 mg/dL (0.6-1.3); Estimated Creatinine Clearance 103.1 mL/min (>60); Globulin 2.4 gm/dL (2.3-3.5); Glucose 87 mg/dL (74-106); Magnesium 1.8 mg/dL (1.6-2.6); Osmolality,Calculated 270 (275-295); Phosphorous 2.7 mg/dL (2.4-5.1); Potassium 3.7 mMol/L (3.4-5.1); Sodium 136 mMol/L (136-145); Thyroid Stimulating Hormone 3.89 uIU/mL (0.55-4.78); Total Protein 5.5 gm/dL (5.7-8.2); eGFR > 60 See Note
[2024-10-18 06:46] LABS: Alkaline Phosphatase 111 U/L (46-116)
[2024-10-18] MEDS: FAMOTIDINE 20 MG TABLET PO ×2 (08:03→20:16)
[2024-10-18] MEDS: HYDROmorphone INJ 2 MG/ML VIAL 1 MG IVP ×2 (13:19→19:50)
--- NOTE | 2024-10-18 14:01 | ESPR_ITS ---
<Statement entered by Ramsey Guzman MD - 10/18/24 15:57> Senior Resident Attestation: I supervised/discussed management plan with international recruiter physician Dr. Galloway, and was involved in the care of this patient. I personally saw and examined the patient and discussed the assessment and plan with the entire medicine team, including my attending. I agree with the assessment and plan as documented. Patient reports no new complaints today. Her blood culture preliminary returned positive GPC 03/29, vancomycin was resumed. Echo was ordered. Pending final blood cultures. Patient's care was discussed with attending physician, Dr. Barker. Ramsey Guzman MD PGY-3. Documentation for date of: 10/18/24 Subjective Subjective Interval history: Patient was evaluated at the bedside this morning. No overnight events were reported. She states she is feeling significantly better today, though she continues to experience some suprapubic tenderness on palpation. She denies any fever or chills. The patient also noted that her urine appeared darker in color yesterday but has since lightened in color. Patient reports last bowel movement was 2 days ago. Patient reports swelling in the right hand, which she believes may be related to recent IV access attempts. She also feels that her lower extremities are swollen. On examination, both legs are equal in size with no evidence of pitting edema. Will continue to monitor for worsening symtoms. Exam Vital Signs Temp Pulse Resp BP Pulse Ox O2 Del Method 97.0 F 85 19 150/82 H 94 L Room Air 10/18/24 12:10/18/24 12:10/18/24 12:10/18/24 12:10/18/24 12:10/18/24 12:00 Narrative Exam Physical Exam General: Awake and in no acute distress. Conversational and non-toxic appearing. Morbid obesity (BMI 47). HEENT: Normocephalic, atraumatic, mucous membranes moist. Heart: Regular rate and rhythm, no murmurs. Lungs: Clear to auscultation bilaterally, non-labored respirations, symmetric chest rise, no use of accessory muscles Abdomen: Soft, nondistended, nontender. No guarding or rebound tenderness. suprapubic tenderness present on palpation. Neurologic: Alert and oriented x3, no gross neurological deficit, and patient able to move all 4 extremities. Extremities: No edema. Skin: No rash. Large ecchymoses on right arm. Objective Labs 10/18/24 05:00 10/18/24 05:00 Labs: Laboratory Results - last 24 hr 10/17/24 10/18/24 22:30 05:00 WBC 11.3 H RBC 4.44 Hgb 13.6 Hct 40.7 MCV 92 MCH 30.6 MCHC 33.4 RDW Std Deviation 49.4 H Plt Count 147 Neut % (Auto) 76 Lymph % (Auto) 17 [place] % (Auto) 3 Eos % (Auto) 3 Baso % (Auto) 0 Neut # (Auto) 8.7 H Lymph # (Auto) 1.9 [place] # (Auto) 0.4 Eos # (Auto) 0.4 Baso # (Auto) 0.0 Immature Gran # (Auto) 0.04 H Absolute Nucleated RBC 0.00 Immature Gran % 0 Nucleated RBC % 0 Sodium 136 Potassium 3.7 D Chloride 104 Carbon Dioxide 21.5 Anion Gap 11 BUN 12 Creatinine 0.8 Estim Creat Clear Calc 103.1 eGFR > 60 BUN/Creatinine Ratio [address] Glu mg/dL 100 Hemoglobin A1c 5.1 Calculated Osmolality 270 L Calcium 9.3 Corrected Calcium 10.0 Phosphorus 2.7 Magnesium 1.8 Total Bilirubin 0.4 AST 38 H ALT 37 Alkaline Phosphatase 111 D Total Protein 5.5 L Albumin 3.1 L Globulin 2.4 Albumin/Globulin Ratio 1.3 TSH 3.89 Ur Random Creatinine 167 H Ur Random Sodium 24.6 Ur Random Potassium 91 H Ur Random Chloride 70.8 Quality Measures Quality Measures none Advance care planning discussed with:: patient Assessment & Plan Assessment Current Active Medications: Generic Name Dose Route Start Last Admin Trade Name Freq PRN Reason Stop Dose Admin Acetaminophen 650 mg 10/16/24 22:37 Acetaminophen 325 Mg Tablet PO 11/15/24 22:36 Q6H PRN Mild Pain 1-3 or Fever >100.3 Hydrocodone Bitart/Acetaminophen 1 tab 10/16/24 22:37 10/18/24 05:07 Hydrocodone/Apap 5/325 Tablet PO 10/21/24 22:36 1 tab Q4HR PRN Administration PAIN SCALE 4-6 (Moderate Famotidine 20 mg 10/17/24 09:00 10/18/24 08:03 Famotidine 20 Mg Tablet PO 11/16/24 08:59 20 mg BID VENKAT Administration Heparin Sodium (Porcine) 5,000 unit 10/17/24 09:00 10/18/24 08:03 Heparin Sod Inj 5000 Unit/Ml Vial SC 10/31/24 08:59 Not Given Q12HR VENKAT Hydromorphone HCl 1 mg 10/16/24 22:37 10/18/24 13:19 Hydromorphone Inj 2 Mg/Ml Vial IVP 10/21/24 22:36 1 mg Q6HR PRN Administration PAIN SCALE 7-10 (Severe Piperacillin Sod/Tazobactam 100 mls @ 25 mls/hr 10/16/24 22:00 10/18/24 13:10 Sod 4.5 gm/ Sodium Chloride IV 10/23/24 21:59 25 mls/hr Q8HR VENKAT Administration Ondansetron HCl 4 mg 10/16/24 22:37 Ondansetron Inj 2 Mg/Ml Inj 2 Ml IVP 11/15/24 22:36 Q6H PRN NAUSEA OR VOMITING Protocol Sennosides 1 tab 10/17/24 20:01 Senna/Docusate Sod 1 Tab Tablet PO 11/16/24 20:00 QDAY PRN CONSTIPATION Protocol Plan 69-year-old female with past medical history of obesity, sciatica, and abdominal hernia presented for lower abdominal pain and urinary symptoms, admitted for sepsis secondary to urinary tract infection and pyelonephritis with acute kidney injury. #Sepsis #Urinary tract infection #Pyelonephritis #Leukocytosis (downtrending) Met SIRS criteria w/ tachycardia, leukocytosis, evidence of end-organ damage w/ LAMBERT + source of infection UTI/pyelonephritis. Patient reports foul smelling urine, suprapubic pain. Denies CVA tenderness. CT abdomen: mild perinephric stranding, 5.6 cm umbilical hernia containing colon but no incarcerated bowel or bowel obstruction, no diverticulitis, no bowel obstruction. distended gallbladder. Given 5L LR --> lactic acid downtrending. Blood culture preliminary results: gram positive cocci resembling Staph. Plan: - Started Vancomycin GPC bacteremia. - Continue Zosyn 4.5 g IV q8h (10/16 - ). - Urine culture pending. - Blood culture 48 hours pending. - Pending echo for evaluation of infective endocarditis. #Acute kidney injury (resolved) Baseline Cr 1. BUN 12, Cr 1.3. Most likely prerenal i/s/o sepsis and poor PO intake past several days. Plan: - Continue to monitor with daily CMP. - Strict I&Os. - Avoid nephrotoxins. - Renally dose medication. #Distended gallbladder #Umbilical hernia Distended gallbladder likely secondary to obesity vs cholecystitis less, Reilly negative. CT abdomen: 5.6 umbilical hernia containing colon but not incarcerated bowel or obstruction. Plan: - No surgical intervention required at this time, per Dr. Conley. - Follow up with bariatric surgeon as outpatient for repair of hernia and removal of gallbladder if becomes symptomatic. #Morbid Obesity Patient taking Semaglutide. Hemoglobin A1c 5.1. TSH 3.89 (wnl). Lipiad panel: cholesterol 110, HDL 35, LDL 53. Plan: - Hold home Semaglutide. - Follow up outpatient management. #Sciatic History Plan: - Conitor to monitor. Health Maintenance Disposition: UTI/pyelonephritis management DVT prophylaxis: Heparin 5,000 U subQ Q12H GI prophylaxis: Famotidine 20 mg PO BID Diet: Regular Lines: Peripheral IV CODE STATUS: FULL Patient plan of care was discussed with the senior resident, Dr. Guzman, and attending physician, Dr. Barker. Tito Galloway DO PGY-1 Attending Provider Attestation/Addendum I Bong Barker MD reviewed the note and agree with the resident's assessment & plan with modifications/additions/exceptions as below. I have personally reviewed labs, imaging, home meds/prior records, examined the patient, formulated and discussed management plan with the IM team. A 69-year-old female with history of cirrhosis presented to ED with flank pain noted to have sepsis with lactic acidosis & leukocytosis. Lactate normalized following IV fluid resuscitation, leukocytosis is improving, preliminary blood culture revealing gram-positive cocic, CT abdomen/pelvis did reveal pyelonephritis without any hydronephrosis. continue IV fluid resuscitation, continue Zosyn and vancomycin, follow urine cultures, blood cultures sensitivities. Will repeat blood cultures, obtain echocardiogram for evaluation of infective endocarditis.
--- NOTE | 2024-10-18 15:55 | ECHO_ITS ---
Transthoracic Echo Report Ht (in): 68 Wt (lb): 316 Exam Location: Echo Lab Status: Inpatient E Commerce Architect: Justina Hardy Indications: Procedure Performed: BP: 167 / 70 HR: 89 MEASUREMENTS (Male / Female) Normal Values 2D ECHO LV Diastolic Diameter PLAX 4.6 cm 4.2 - 5.9 / 3.9 - 5.3 cm LV Systolic Diameter PLAX 3.3 cm IVS Diastolic Thickness 0.8 cm 0.6 - 1.0 / 0.6 - 0.9 cm LVPW Diastolic Thickness 1.2 cm 0.6 - 1.0 / 0.6 - 0.9 cm LV Relative Wall Thickness 0.4 LVOT Diameter 2.1 cm LA Volume Index 24.8 cm?/m? 16 - 28 cm?/m? Ascending Aorta Diameter 3.1 cm M-MODE AV Cusp Separation MM 2.2 cm DOPPLER AV Peak Velocity 143.0 cm/s AV Peak Gradient 8.2 mmHg AV Mean Gradient 5.0 mmHg AV Velocity Time Integral 32.2 cm LVOT Peak Velocity 112.0 cm/s LVOT Peak Gradient 5.0 mmHg LVOT Velocity Time Integral 20.8 cm LVOT Cardiac Index 2373.8 cm?/min?m? AV Area Cont Eq vti 2.2 cm? AV Area Cont Eq pk 2.7 cm? MV Area PHT 6.1 cm? Mitral E Point Velocity 68.3 cm/s Mitral A Point Velocity 97.5 cm/s Mitral E to A Ratio 0.7 LV E' Lateral Velocity 8.7 cm/s Mitral E to LV E' Lateral Ratio 7.9 LV E' Septal Velocity 8.2 cm/s Mitral E to LV E' Septal Ratio 8.4 TR Peak Velocity 136.3 cm/s TR Peak Gradient 7.4 mmHg PV Peak Velocity 108.0 cm/s PV Peak Gradient 4.7 mmHg FINDINGS Left Ventricle Normal left ventricular size, wall thickness, systolic function with no obvious regional wall motion abnormalitie.There is grade I diastolic dysfunction of the left ventricle (impaired relaxation pattern). The ejection fraction is visually estimated at 55-60 %. Right Ventricle The right ventricle is normal in size and systolic function. Left Atrium The left atrial cavity size is mildly increased. Right Atrium The right atrium is normal by two-dimensional imaging, color flow and Doppler imaging with no structural abnormalities, no thrombus formation present. Atrial Septum The interatrial septum appears normal with no evidence of a shunt. Aorta The aorta is normal by two-dimensional, color flow and Doppler interrogation. Mitral Valve The mitral valve is normal by two-dimensional, color flow and Doppler interrogation. There is no significant mitral valve regurgitation, stenosis or prolapse. Aortic Valve The aortic valve is trileaflet and normal by two-dimensional, color flow and Doppler interrogation. There is no significant aortic valve regurgitation. Tricuspid Valve The tricuspid valve is normal by two-dimensional, color flow and Doppler interrogation.there is trace tricuspid valve regurgitation. Pulmonic Valve The pulmonic valve is not well visualized. There is no significant pulmonic valve regurgitation. Vessels The pulmonary artery appears normal. The inferior vena cava pulmonary and hepatic veins appear normal. Pericardium The pericardium is normal by two-dimensional imaging. There is no significant pericardial effusion. CONCLUSIONS Indication: GPC bacteremia Normal left ventricular size and function.Grade I diastolic dysfunction Approximate ejection fraction is 60- 65% Suboptimal study to comment on valvular vegetaions. Consider ALONZO if high risk of suspicion Normal Right ventricular size and function. Normal RVSP Trace tricuspid regurgitation noted. Mild dilated LA. No pericardial effusion Mati Hopkins (Electronically Signed) Final Date: 20 October 2024 10:52
[2024-10-18] MEDS: Vancomycin Inj 2,000 MG in SODIUM CHLORIDE 0.9% 500 ML 500 ML 150 MG IV (17:00)
[2024-10-19] VITALS (8 sets, daily range): BP systolic 117–162; BP diastolic 65–82; PULSE 75–94; RESP 13–20; TEMP 36–36.9; O2SAT 92–95
[2024-10-19] MEDS: HYDROmorphone INJ 2 MG/ML VIAL 1 MG IVP ×2 (02:46→15:27)
[2024-10-19] MEDS: VANCOMYCIN/WATER 1GM IVPB 200 ML IV ×2 (05:21→21:12)
[2024-10-19] MEDS: PIPER/TAZO INJ 4.5 GM in SODIUM CHLORIDE 0.9% (POP) 100 ML IV (05:21)
[2024-10-19 06:10] LABS: Basophils # (Auto) 0.1 Thou/mm3 (0.0-0.2); Basophils % (Auto) 0 % (0-2.5); Eosinophils # (Auto) 0.4 Thou/mm3 (0.0-0.5); Eosinophils % (Auto) 3 % (0-10); Hematocrit 37.9 % (36.0-46.0); Hemoglobin 13.4 g/dL (12.0-16.0); Immature Granulocytes Auto 0.06 Thou/mm3 (0.00-0.00); Lymphocytes # (Auto) 3.1 Thou/mm3 (1.0-4.8); Lymphocytes % (Auto) 22 % (10-50); Mean Corpuscular HGB Conc 35.4 g/dl (31.0-37.0); Mean Corpuscular Hemoglobin 32.2 pg (25.0-35.0); Mean Corpuscular Volume 91 fL (80-100); Monocytes # (Auto) 0.6 Thou/mm3 (0.0-0.8); Monocytes % (Auto) 4 % (0-12); Neutrophils # (Auto) 10.1 Thou/mm3 (1.8-7.7); Neutrophils % (Auto) 71 % (37-80); Nucleated Red Blood Cell # 0.00 Thou/mm3 (0.00-0.00); Nucleated Red Blood Cell % 0 /100 WBC (0); Platelet Count 159 Thou/mm3 (140-440); RDW Standard Deviation 50.0 fL (36.4-46.3); Red Blood Count 4.16 Miln/mm3 (4.00-5.20); White Blood Count 14.3 Thou/mm3 (3.6-11.0)
[2024-10-19 06:44] LABS: Alanine Aminotransferase 37 U/L (10-49); Albumin, Serum 2.9 gm/dL (3.4-4.8); Albumin/Globulin Ratio 1.0 (1.2-2.2); Alkaline Phosphatase 156 U/L (46-116); Anion Gap 11 (7-16); Aspartate Amino Transferase 32 U/L (0-34); BUN/Creatinine Ratio 9 Ratio (12-20); Bilirubin,Total 0.4 mg/dL (0.3-1.2); Blood Urea Nitrogen 6 mg/dL (9-23); Calcium 8.8 mg/dL (8.3-10.6); Calcium (Corrected) 9.7 mg/dL (8.5-10.1); Carbon Dioxide 24.0 mMol/L (20.0-31.0); Chloride 103 mMol/L (98-107); Creatinine (Component) 0.7 mg/dL (0.6-1.3); Estimated Creatinine Clearance 117.9 mL/min (>60); Globulin 2.8 gm/dL (2.3-3.5); Glucose 86 mg/dL (74-106); Magnesium 2.0 mg/dL (1.6-2.6); Osmolality,Calculated 272 (275-295); Phosphorous 2.6 mg/dL (2.4-5.1); Potassium 3.6 mMol/L (3.4-5.1); Sodium 138 mMol/L (136-145); Total Protein 5.7 gm/dL (5.7-8.2); eGFR > 60 See Note
--- NOTE | 2024-10-19 10:04 | PC.SS ---
Patient Claire Valenzuela is a 69 Year old female admitted for Sepsis. SS met with patient at bedside to discuss discharge plan. Patient reports she lives at home with her grand daughter. Patient reports her sonJulio C is her surrogate decision maker, . Patient reports she does utilize a Rollator walker to assist with ambulation. Patient is able to complete all ADL's independently. PCP is Cindy Mendenhall. Choice of Pharmacy is [facility]. At time of discharge patient's wishes are to return back home, family will provide transportation. No further needs identified. Next of kin: SonJulio C Discharge plan: Home
--- NOTE | 2024-10-19 10:17 | PD.ADDPROG ---
Addendum Progress Note Addendum Date of report being addended: 10/19/24 Narrative: pt melanyrevahe bowman a ct of pelvis, so be sure that aradiology has reviewed with bacteremia in mind as the does not seem to be from the urine
--- NOTE | 2024-10-19 11:47 | ESCONSULT_ITS ---
RE: YURIY TUCKER : 1955 DATE OF CONSULTATION: 10/19/2024 REFERRING PHYSICIAN: Sarwat Bergman MD REASON FOR CONSULTATION: Positive blood cultures with gram-positive cocci in a heavyset lady without an overt focus for rx . HISTORY OF PRESENT ILLNESS: The patient is a heavyset lady with a history of basal cell carcinoma and pelvic pain. She was thought to have a UTI on admission, but that proved to be negative. She reports that she was kept here for several days in 2021 with COVID, which she reports that she got here, so they could give her the expensive treatments. I find that hard to believe, but that is her story. She is a 4, para 4 and takes care of her 14-year-old granddaughter at home. PAST MEDICAL HISTORY: She has limited past history. PAST SURGICAL HISTORY: Includes only a vaginal hysterectomy in 2021, done laparoscopically with an abdominal hernianoted and not repaired. ALLERGIES: TO LATEX CAUSING BLISTERING OF THE SKIN. IMMUNIZATIONS: Last tetanus was unknown. She does not take a flu shot every year. She has had 3 COVID vaccines and has had pneumococcal vaccination. FAMILY HISTORY: Family history is positive. It is unremarkable. SOCIAL HISTORY: She lives at home with her 14-year-old granddaughter. She is a lifelong nonsmoker. PHYSICAL EXAMINATION: The exam is benign. The patient has no active surgical lesions. She does have a lot of pelvic pain. IMPRESSION: Imaging of the pelvis with CT scan was noted for osteomyelitis, but I am not sure if the radiology was advised to look for that. They looked for renal problems, but did not find any overtly. There has been no renal insufficiency. She did have positive blood cultures, but it could be a contaminant. It is hard to know. Coagulase-negative staph can be a contaminant even if both are positive. The patient was not febrile. I am not sure why she is on an h2ra, but it is part of the routine admission orders. RECOMMENDATIONS: I am going to go ahead and stop the H2RA and I will check on her again on Saturday. DT: 10:16:09 TT: 10:45:00 Ref: [id number] - TID: [id number] [facility]
[2024-10-19 11:52] LABS: B-Type Natriuretic Peptide 88 pg/mL (0-100)
--- NOTE | 2024-10-19 13:00 | PC.SS ---
SS follow up note; ID rec's pending, possible IV ABX. SS will follow up with discharge plan if patient needs IV ABX.
[2024-10-19] MEDS: PANTOPRAZOLE 40 MG TABLET PO (13:41)
[2024-10-19] MEDS: cefTRIAXone 2 GM in SODIUM CHLORIDE 0.9% (Popper) 50 ML IV (15:28)
--- NOTE | 2024-10-19 15:37 | ESPR_ITS ---
<Statement entered by Ruel Medrano MD - 10/23/24 15:08> I reviewed above note and agree with findings and plans. I have also personally examined the patient with medicine team and went over assessment and plan with medical team including grad intern and resident physician. <Statement entered by Hiram Goode MD - 10/19/24 16:35> Patient was examined and case was reviewed with team including attending physician. Note reviewed, I agree with most of its contents and agree with the patient's care as documented by Dr. Galloway Patient seen and evaluated bedside. No active complaints at this time. Vitals and labs reviewed. Patient's preliminary blood cultures grew gram-positive cocci in 2x bottles. Repeat blood cultures were sent pending those results at this time. Will continue the IV antibiotics Rocephin and Vancomycin at this time. Case discussed with my attending Dr. Marcela Goode MD PGY-2 Disclaimer: Despite multiple revisions, due to the dictation software being used, the document bellow may not be free of grammatical errors including phonetic/typographic errors. However, this does not deter from our commitment to providing health care in the patient's best interest in mind. Documentation for date of: 10/19/24 Subjective Subjective Interval history: Patient was seen at the bedside this morning with her son, Julio C, on the phone. She reports persistent swelling in both her arms and legs. Additionally, she endorses suprapubic discomfort that worsens with coughing. Patient also reports a cough and describes experiencing an unusual taste in her mouth. She states that she takes Malu-Arcadia at home. A trial of Protonix will be started to address possible underlying gastroesophageal reflux or dyspepsia. Exam Vital Signs Temp Pulse Resp BP Pulse Ox O2 Del Method 98.2 F 86 20 127/65 95 Room Air 10/19/24 12:22 10/19/24 12:50 10/19/24 12:22 10/19/24 12:22 10/19/24 12:22 10/19/24 12:22 Narrative Exam Physical Exam General: Awake and in no acute distress. Conversational and non-toxic appearing. Morbid obesity (BMI 47). HEENT: Normocephalic, atraumatic, mucous membranes moist. Heart: Regular rate and rhythm, no murmurs. Lungs: Clear to auscultation bilaterally, non-labored respirations, symmetric chest rise, no use of accessory muscles Abdomen: Soft, nondistended, nontender. No guarding or rebound tenderness. suprapubic tenderness present on palpation. Neurologic: Alert and oriented x3, no gross neurological deficit, and patient able to move all 4 extremities. Extremities: Mild edema in bilateral forearms. No pitting edema in LEs and no signs of cellulitis. Skin: No rash. Large ecchymoses on right arm. Objective Labs 10/19/24 04:58 10/19/24 04:58 Labs: Laboratory Results - last 24 hr 10/19/24 04:58 WBC 14.3 H RBC 4.16 Hgb 13.4 Hct 37.9 MCV 91 MCH 32.2 MCHC 35.4 RDW Std Deviation 50.0 H Plt Count 159 Neut % (Auto) 71 Lymph % (Auto) 22 [place] % (Auto) 4 Eos % (Auto) 3 Baso % (Auto) 0 Neut # (Auto) 10.1 H Lymph # (Auto) 3.1 [place] # (Auto) 0.6 Eos # (Auto) 0.4 Baso # (Auto) 0.1 Immature Gran # (Auto) 0.06 H Absolute Nucleated RBC 0.00 Immature Gran % 0 Nucleated RBC % 0 Sodium 138 Potassium 3.6 Chloride 103 Carbon Dioxide 24.0 Anion Gap 11 BUN 6 L Creatinine 0.7 Estim Creat Clear Calc 117.9 eGFR > 60 BUN/Creatinine Ratio 9 L Glucose 86 Calculated Osmolality 272 L Calcium 8.8 Corrected Calcium 9.7 Phosphorus 2.6 Magnesium 2.0 Total Bilirubin 0.4 AST 32 ALT 37 Alkaline Phosphatase 156 H D B-Natriuretic Peptide 88 Total Protein 5.7 Albumin 2.9 L Globulin 2.8 Albumin/Globulin Ratio 1.0 L Quality Measures Quality Measures none Advance care planning discussed with:: patient Assessment & Plan Assessment Current Active Medications: Generic Name Dose Route Start Last Admin Trade Name Freq PRN Reason Stop Dose Admin Acetaminophen 650 mg 10/16/24 22:37 Acetaminophen 325 Mg Tablet PO 11/15/24 22:36 Q6H PRN Mild Pain 1-3 or Fever >100.3 Hydrocodone Bitart/Acetaminophen 1 tab 10/16/24 22:37 10/18/24 05:07 Hydrocodone/Apap 5/325 Tablet PO 10/21/24 22:36 1 tab Q4HR PRN Administration PAIN SCALE 4-6 (Moderate Heparin Sodium (Porcine) 5,000 unit 10/17/24 09:00 10/19/24 09:03 Heparin Sod Inj 5000 Unit/Ml Vial SC 10/31/24 08:59 Not Given Q12HR VENKAT Hydromorphone HCl 1 mg 10/16/24 22:37 10/19/24 15:27 Hydromorphone Inj 2 Mg/Ml Vial IVP 10/21/24 22:36 1 mg Q6HR PRN Administration PAIN SCALE 7-10 (Severe Vancomycin HCl 200 mls @ 120 mls/hr 10/19/24 06:00 10/19/24 05:21 Vancomycin/Water 1gm Ivpb IV 10/26/24 05:59 120 mls/hr Q8HR VENKAT Administration Ceftriaxone Sodium 2 gm/ 50 mls @ 100 mls/hr 10/19/24 11:23 10/19/24 15:28 Sodium Chloride IV 10/26/24 11:22 100 mls/hr QDAY VENKAT Administration Ondansetron HCl 4 mg 10/16/24 22:37 Ondansetron Inj 2 Mg/Ml Inj 2 Ml IVP 11/15/24 22:36 Q6H PRN NAUSEA OR VOMITING Protocol Pantoprazole Sodium 40 mg 10/19/24 12:30 10/19/24 13:41 Pantoprazole 40 Mg Tablet PO 11/24/24 12:29 40 mg QDAY VENKAT Administration Pharmacy Consult 1 each 10/18/24 15:30 Vancomycin Pharmacy To Dose 1 Each Each IV 11/17/24 15:29 QDAY PRN CONSULT Sennosides 1 tab 10/17/24 20:01 Senna/Docusate Sod 1 Tab Tablet PO 11/16/24 20:00 QDAY PRN CONSTIPATION Protocol Plan 69-year-old female with past medical history of obesity, sciatica, and abdominal hernia presented for lower abdominal pain and urinary symptoms, admitted for sepsis secondary to urinary tract infection and pyelonephritis with acute kidney injury. #Sepsis, likely secondary to #Pyelonephritis vs #Urinary tract infection vs #Gram positive cocci bacteremia (unclear source) Met SIRS criteria w/ tachycardia, leukocytosis, evidence of end-organ damage with acute kidney injury. Initial suspicion was UTI/pyelonephritis, but now with GPC bacteremia of unclear source (urine culture negative, no obvious skin/soft tissue source, no pneumonia). Patient reports foul smelling urine, suprapubic pain. Denies CVA tenderness. CT abdomen: mild perinephric stranding, 5.6 cm umbilical hernia containing colon but no incarcerated bowel or bowel obstruction, no diverticulitis, no bowel obstruction. distended gallbladder. Given 5L LR --> lactic acid downtrending. Urine culture: negative. Blood culture: gram positive cocci resembling Staph. Plan: - Continue IV Vancomycin (10/18) - Start Ceftriaxone 2 grams (10/19) - Pending echo for evaluation of infective endocarditis. - Will repeat blood cultures. - ID consulted: Dr. Nelson's recommendation: have radiology review CT of pelvis with bacteremia and osteomyelitis in mind. - Monitor renal function and adjust antibiotics as needed. - Monitor for fever, flank pain, or worsening symptoms. #Possible GERD Patient reports cough and an unusual taste in the mouth, which may be consistent with symptoms of GERD. Patients takes Malu-Arcadia at home. No reports of heartburn or chest pain at this time. Plan: - Start Protonix 40 mg PO QD. - Monitor for improvement in cough and taste disturbance over the next several days. #Acute kidney injury (resolved) Baseline Cr 1. BUN 12, Cr 1.3. Most likely prerenal i/s/o sepsis and poor PO intake past several days. Plan: - Continue to monitor with daily CMP. - Strict I&Os. - Avoid nephrotoxins. - Renally dose medication. #Distended gallbladder #Umbilical hernia Distended gallbladder likely secondary to obesity vs cholecystitis less, Reilly negative. CT abdomen: 5.6 umbilical hernia containing colon but not incarcerated bowel or obstruction. Plan: - No surgical intervention required at this time, per Dr. Conley. - Follow up with bariatric surgeon as outpatient for repair of hernia and removal of gallbladder if becomes symptomatic. #Morbid Obesity Patient taking Semaglutide. Hemoglobin A1c 5.1. TSH 3.89 (wnl). Lipiad panel: cholesterol 110, HDL 35, LDL 53. Plan: - Hold home Semaglutide. - Follow up outpatient management. #Sciatic History Plan: - Conitor to monitor. Health Maintenance DVT prophylaxis: Heparin 5,000 U subQ Q12H GI prophylaxis: Protonix 40 mg PO QD Diet: Regular Lines: Peripheral IV CODE STATUS: FULL Patient plan of care was discussed with the senior resident, Dr. Saulo Goode, and attending physician, Dr. Medrano. Tito Galloway DO PGY-1
--- NOTE | 2024-10-19 16:15 | PC.NURSE ---
Called Dr. Saulo Goode regarding multiple attempts with IV insertion using ultrasound machine by ICU nurses, Luz DE LUNA was able to get 20g to RFA but has since infiltrated. RN informed MD of possible PICC line placement, MD states to call to see if IR is still available. RN called with no answer, called MD back to inform him. states try IV insertion again doesn't want PICC line just for IV antibiotics. RN called ICU charge nurse ANNAMARIE Granado to come and try IV insertion again. Vannesa states will call Dr. Vernon regarding IV insertion.
[2024-10-20] VITALS (9 sets, daily range): BP systolic 132–142; BP diastolic 61–97; PULSE 75–93; RESP 16–20; TEMP 36.1–37; O2SAT 90–96; BMI 47.9
[2024-10-20 05:59] LABS: Basophils # (Auto) 0.1 Thou/mm3 (0.0-0.2); Basophils % (Auto) 1 % (0-2.5); Eosinophils # (Auto) 0.2 Thou/mm3 (0.0-0.5); Eosinophils % (Auto) 2 % (0-10); Hematocrit 39.5 % (36.0-46.0); Hemoglobin 13.0 g/dL (12.0-16.0); Immature Granulocytes Auto 0.13 Thou/mm3 (0.00-0.00); Lymphocytes # (Auto) 4.1 Thou/mm3 (1.0-4.8); Lymphocytes % (Auto) 29 % (10-50); Mean Corpuscular HGB Conc 32.9 g/dl (31.0-37.0); Mean Corpuscular Hemoglobin 30.2 pg (25.0-35.0); Mean Corpuscular Volume 92 fL (80-100); Monocytes # (Auto) 0.6 Thou/mm3 (0.0-0.8); Monocytes % (Auto) 4 % (0-12); Neutrophils # (Auto) 9.1 Thou/mm3 (1.8-7.7); Neutrophils % (Auto) 64 % (37-80); Nucleated Red Blood Cell # 0.00 Thou/mm3 (0.00-0.00); Nucleated Red Blood Cell % 0 /100 WBC (0); Platelet Count 217 Thou/mm3 (140-440); RDW Standard Deviation 49.8 fL (36.4-46.3); Red Blood Count 4.31 Miln/mm3 (4.00-5.20); White Blood Count 14.3 Thou/mm3 (3.6-11.0)
--- NOTE | 2024-10-20 06:38 | PC.NURSE ---
Awaits vanco trough result, unable to admin vanco dose at this time.
[2024-10-20 06:39] LABS: Alanine Aminotransferase 36 U/L (10-49); Albumin, Serum 3.0 gm/dL (3.4-4.8); Albumin/Globulin Ratio 1.2 (1.2-2.2); Alkaline Phosphatase 211 U/L (46-116); Anion Gap 11 (7-16); Aspartate Amino Transferase 29 U/L (0-34); BUN/Creatinine Ratio 13 Ratio (12-20); Bilirubin,Total 0.5 mg/dL (0.3-1.2); Blood Urea Nitrogen 9 mg/dL (9-23); Calcium 9.4 mg/dL (8.3-10.6); Calcium (Corrected) 10.2 mg/dL (8.5-10.1); Carbon Dioxide 26.5 mMol/L (20.0-31.0); Chloride 102 mMol/L (98-107); Creatinine (Component) 0.7 mg/dL (0.6-1.3); Estimated Creatinine Clearance 117.9 mL/min (>60); Globulin 2.5 gm/dL (2.3-3.5); Glucose 80 mg/dL (74-106); Magnesium 1.9 mg/dL (1.6-2.6); Osmolality,Calculated 275 (275-295); Phosphorous 3.8 mg/dL (2.4-5.1); Potassium 3.3 mMol/L (3.4-5.1); Sodium 139 mMol/L (136-145); Total Protein 5.5 gm/dL (5.7-8.2); Vancomycin,Trough 17.3 mcg/mL (5.0-10.0); eGFR > 60 See Note
[2024-10-20] MEDS: VANCOMYCIN/WATER 1GM IVPB 200 ML IV (06:43)
[2024-10-20 06:59] LABS: AFP Non-Pregnant < 1.30 ng/mL (<8.10); Hepatitis C Antibody Non Reactive (Non React)
[2024-10-20] MEDS: HYDROmorphone INJ 2 MG/ML VIAL 1 MG IVP ×4 (07:17→20:46)
[2024-10-20] MEDS: PANTOPRAZOLE 40 MG TABLET PO (08:45)
--- NOTE | 2024-10-20 09:35 | ESPR_ITS ---
<Statement entered by Ruel Medrano MD - 10/23/24 15:13> I reviewed above note and agree with findings and plans. I have also personally examined the patient with medicine team and went over assessment and plan with medical team including culinary internship and resident physician. <Statement entered by Hiram Goode MD - 10/20/24 17:03> Patient was examined and case was reviewed with team including attending physician. Note reviewed, I agree with most of its contents and agree with the patient's care as documented by Dr. Galloway Patient seen evaluated the bedside. No overnight events reported. Vital signs and labs reviewed. Currently on IV antibiotic therapy for bacteremia. Will speak to radiology in regards to previous CT findings as per infectious disease recommendations. For possible osteomyelitis will follow-up with the recommendations. Case discussed with my attending Dr. Marcela Goode MD PGY-2 Disclaimer: Despite multiple revisions, due to the dictation software being used, the document bellow may not be free of grammatical errors including phonetic/typographic errors. However, this does not deter from our commitment to providing health care in the patient's best interest in mind. Documentation for date of: 10/20/24 Subjective Subjective Interval history: Patient was seen at the bedside this morning. No overnight events were reported. She states that she is feeling better today. The swelling in her hands has improved. She rates her suprapubic pain as 5/10, describing it as a ?pulled muscle? sensation. She also notes mild improvement in her cough since starting the PPI. Spoke with Dr. Moreno regarding a second opinion on the CT abdomen/pelvis per Dr. Nelson?s recommendation, specifically to have radiology re-review the CT with concern for bacteremia and possible osteomyelitis. Dr. Moreno stated that he does not see any additional findings beyond what was noted in the original report and recommended a nuclear medicine scan as a more appropriate modality to evaluate for osteomyelitis. Exam Vital Signs Temp Pulse Resp BP Pulse Ox O2 Del Method 97.6 F 80 19 132/68 H 90 L Room Air 10/20/24 08:00 10/20/24 08:00 10/20/24 08:00 10/20/24 08:00 10/20/24 08:00 10/20/24 08:00 Narrative Exam Physical Exam General: Awake and in no acute distress. Conversational and non-toxic appearing. Morbid obesity (BMI 47). HEENT: Normocephalic, atraumatic, mucous membranes moist. Heart: Regular rate and rhythm, no murmurs. Lungs: Clear to auscultation bilaterally, non-labored respirations, symmetric chest rise, no use of accessory muscles Abdomen: Soft, nondistended, nontender. No guarding or rebound tenderness. suprapubic tenderness present on palpation. Neurologic: Alert and oriented x3, no gross neurological deficit, and patient able to move all 4 extremities. Extremities: No edema. Skin: No rash. Large ecchymoses on right arm. Objective Labs 10/22/24 05:48 10/22/24 05:48 Labs: Laboratory Results - last 24 hr 10/19/24 10/20/24 04:58 05:11 WBC 14.3 H RBC 4.31 Hgb 13.0 Hct 39.5 MCV 92 MCH 30.2 MCHC 32.9 RDW Std Deviation 49.8 H Plt Count 217 D Neut % (Auto) 64 Lymph % (Auto) 29 [place] % (Auto) 4 Eos % (Auto) 2 Baso % (Auto) 1 Neut # (Auto) 9.1 H Lymph # (Auto) 4.1 [place] # (Auto) 0.6 Eos # (Auto) 0.2 Baso # (Auto) 0.1 Immature Gran # (Auto) 0.13 H Absolute Nucleated RBC 0.00 Immature Gran % 1 H Nucleated RBC % 0 Sodium 139 Potassium 3.3 L Chloride 102 Carbon Dioxide 26.5 Anion Gap 11 BUN 9 Creatinine 0.7 Estim Creat Clear Calc 117.9 eGFR > 60 BUN/Creatinine Ratio 13 Glucose 80 Calculated Osmolality 275 Calcium 9.4 Corrected Calcium 10.2 H Phosphorus 3.8 Magnesium 1.9 Total Bilirubin 0.5 AST 29 ALT 36 Alkaline Phosphatase 211 H D B-Natriuretic Peptide 88 Total Protein 5.5 L Albumin 3.0 L Globulin 2.5 Albumin/Globulin Ratio 1.2 Tumor Marker AFP < 1.30 Vancomycin Trough 17.3 H Hepatitis C Antibody Non Reactive Quality Measures Quality Measures none Advance care planning discussed with:: patient Assessment & Plan Assessment Current Active Medications: Generic Name Dose Route Start Last Admin Trade Name Freq PRN Reason Stop Dose Admin Acetaminophen 650 mg 10/16/24 22:37 Acetaminophen 325 Mg Tablet PO 11/15/24 22:36 Q6H PRN Mild Pain 1-3 or Fever >100.3 Hydrocodone Bitart/Acetaminophen 1 tab 10/16/24 22:37 10/18/24 05:07 Hydrocodone/Apap 5/325 Tablet PO 10/21/24 22:36 1 tab Q4HR PRN Administration PAIN SCALE 4-6 (Moderate Heparin Sodium (Porcine) 5,000 unit 10/17/24 09:00 10/20/24 08:45 Heparin Sod Inj 5000 Unit/Ml Vial SC 10/31/24 08:59 Not Given Q12HR VENKAT Hydromorphone HCl 1 mg 10/16/24 22:37 10/20/24 07:17 Hydromorphone Inj 2 Mg/Ml Vial IVP 10/21/24 22:36 1 mg Q6HR PRN Administration PAIN SCALE 7-10 (Severe Ceftriaxone Sodium 2 gm/ 50 mls @ 100 mls/hr 10/19/24 11:23 10/19/24 15:28 Sodium Chloride IV 10/26/24 11:22 100 mls/hr QDAY VENKAT Administration Vancomycin HCl 250 mls @ 120 mls/hr 10/20/24 22:00 Vancomycin/Water 1250 Mg Ivpb IV 10/27/24 21:59 BID@1000,2200 VENKAT Ondansetron HCl 4 mg 10/16/24 22:37 Ondansetron Inj 2 Mg/Ml Inj 2 Ml IVP 11/15/24 22:36 Q6H PRN NAUSEA OR VOMITING Protocol Pantoprazole Sodium 40 mg 10/19/24 12:30 10/20/24 08:45 Pantoprazole 40 Mg Tablet PO 11/24/24 12:29 40 mg QDAY VENKAT Administration Pharmacy Consult 1 each 10/18/24 15:30 Vancomycin Pharmacy To Dose 1 Each Each IV 11/17/24 15:29 QDAY PRN CONSULT Sennosides 1 tab 10/17/24 20:01 Senna/Docusate Sod 1 Tab Tablet PO 11/16/24 20:00 QDAY PRN CONSTIPATION Protocol Plan 69-year-old female with past medical history of obesity, sciatica, and abdominal hernia presented for lower abdominal pain and urinary symptoms, admitted for sepsis secondary to urinary tract infection and pyelonephritis with acute kidney injury. #MSSA bacteremia (unclear source) Blood culture resulted with Staph. Repeat blood cultures are negative. Echo (10/18): Suboptimal study to comment on valvular vegetaions. Plan: - Continue Ceftriaxone 2 grams (10/19-). - Discontinued vancomycin. - ID consulted - appreciate recs. PICC line? #Sepsis, likely secondary to #Pyelonephritis vs #Urinary tract infection vs Met SIRS criteria w/ tachycardia, leukocytosis, evidence of end-organ damage with acute kidney injury. Initial suspicion was UTI/pyelonephritis, but now with GPC bacteremia of unclear source (urine culture negative, no obvious skin/soft tissue source, no pneumonia). Patient reports foul smelling urine, suprapubic pain. Denies CVA tenderness. CT abdomen: mild perinephric stranding, 5.6 cm umbilical hernia containing colon but no incarcerated bowel or bowel obstruction, no diverticulitis, no bowel obstruction. distended gallbladder. Given 5L LR --> lactic acid downtrending. Urine culture: negative. Plan: - Continue Ceftriaxone 2 grams (10/19-). - Discontinued IV Vancomycin. - Monitor renal function and adjust antibiotics as needed. - Monitor for fever, flank pain, or worsening symptoms. #Possible GERD Patient reports cough and an unusual taste in the mouth, which may be consistent with symptoms of GERD. Patients takes [place] at home. No reports of heartburn or chest pain at this time. Plan: - Start Protonix 40 mg PO QD. - Monitor for improvement in cough and taste disturbance over the next several days. #Acute kidney injury (resolved) Baseline Cr 1. BUN 12, Cr 1.3. Most likely prerenal i/s/o sepsis and poor PO intake past several days. Plan: - Continue to monitor with daily CMP. - Strict I&Os. - Avoid nephrotoxins. - Renally dose medication. #Distended gallbladder #Umbilical hernia Distended gallbladder likely secondary to obesity vs cholecystitis less, Reilly negative. CT abdomen: 5.6 umbilical hernia containing colon but not incarcerated bowel or obstruction. Plan: - No surgical intervention required at this time, per Dr. Conley. - Follow up with bariatric surgeon as outpatient for repair of hernia and removal of gallbladder if becomes symptomatic. #Morbid Obesity Patient taking Semaglutide. Hemoglobin A1c 5.1. TSH 3.89 (wnl). Lipiad panel: cholesterol 110, HDL 35, LDL 53. Plan: - Hold home Semaglutide. - Follow up outpatient management. #Sciatic History Plan: - Continue to monitor. Health Maintenance DVT prophylaxis: Heparin 5,000 U subQ Q12H GI prophylaxis: Protonix 40 mg PO QD Diet: Regular Lines: Peripheral IV CODE STATUS: FULL Patient plan of care was discussed with the senior resident, Dr. Saulo Goode, and attending physician, Dr. Medrano. Tito Galloway, PGY-1
[2024-10-20] MEDS: cefTRIAXone 2 GM in SODIUM CHLORIDE 0.9% (Popper) 50 ML IV (10:00)
--- NOTE | 2024-10-20 11:40 | PC.SS ---
Addendum entered by Sally Barrios 10/20/24 13:46: SS follow up note; Echo pending at the time, patient will discharge home when medically cleared. Original Note: SS follow up note; Repeat blood cultures pending. Patient is on Rocephin and Vancomycin via IV. Patient will possibly need IV ABX. SS met with patient in regards to discharge plan. Patient reports if she does need IV ABX she will discharge home with HH. No preference of HH agency. Patient reports her daughter in law Yessica Samuel will administer IV ABX, [phone]. Patient's PCP is Dr. Cindy Mendenhall which her last appointment was Saturday. SS will stand by for further needs.
[2024-10-21] VITALS (10 sets, daily range): BP systolic 116–137; BP diastolic 64–76; PULSE 63–115; RESP 14–18; TEMP 36.1–36.4; O2SAT 94–99
--- NOTE | 2024-10-21 | XR_ITS ---
Exam date and time: 10/21/2024, 12:36 PM Examination: Ultrasound-guided needle placement right brachial vein. Dual-lumen central line placement (PICC line). Fluoroscopy time: 0.5 minutes Dose: 7.24 mGy Indications: Needs long-term antibiotics. A timeout was completed verifying correct patient, procedure, site, positioning Informed consent provided Technique: The patient's site was prepped and draped in sterile fashion. Maximum barrier sterile [id number], hand hygience, ultrasound sterile technique Ultrasound guided needle placement right brachial vein Ultrasound images recorded and stored. 5 cc 1% lidocaine administered for local anesthetic. Successful micropuncture with a 21-gauge needle is performed. 0.18 wire guide is then introduced into the SVC under fluoroscopic guidance. Dual-lumen catheter dilator is then introduced, followed by the catheter in the SVC and proper position under fluoroscopic guidance. Successful aspiration of blood and flushing with heparinized saline is then performed in the 2 venous limbs. The catheter sutured in place. Findings: Under fluoroscopy, the tip of the catheter is in good position in the vena cava. Estimated blood loss 3 cc The patient tolerated the procedure well and was in stable and satisfactory condition at completion of the procedure Impression: Successful ultrasound-guided needle placement right brachial vein Successful placement of dual lumen central line, percutaneous May use central line.
[2024-10-21] MEDS: HYDROcodone/APAP 5/325 TABLET 1 TAB PO (00:54)
[2024-10-21 06:09] LABS: Basophils # (Auto) 0.1 Thou/mm3 (0.0-0.2); Basophils % (Auto) 1 % (0-2.5); Eosinophils # (Auto) 0.3 Thou/mm3 (0.0-0.5); Eosinophils % (Auto) 3 % (0-10); Hematocrit 37.1 % (36.0-46.0); Hemoglobin 12.7 g/dL (12.0-16.0); Immature Granulocytes Auto 0.24 Thou/mm3 (0.00-0.00); Lymphocytes # (Auto) 3.7 Thou/mm3 (1.0-4.8); Lymphocytes % (Auto) 34 % (10-50); Mean Corpuscular HGB Conc 34.2 g/dl (31.0-37.0); Mean Corpuscular Hemoglobin 30.9 pg (25.0-35.0); Mean Corpuscular Volume 90 fL (80-100); Monocytes # (Auto) 0.7 Thou/mm3 (0.0-0.8); Monocytes % (Auto) 6 % (0-12); Neutrophils # (Auto) 6.1 Thou/mm3 (1.8-7.7); Neutrophils % (Auto) 55 % (37-80); Nucleated Red Blood Cell # 0.00 Thou/mm3 (0.00-0.00); Nucleated Red Blood Cell % 0 /100 WBC (0); Platelet Count 237 Thou/mm3 (140-440); RDW Standard Deviation 48.8 fL (36.4-46.3); Red Blood Count 4.11 Miln/mm3 (4.00-5.20); White Blood Count 11.0 Thou/mm3 (3.6-11.0)
[2024-10-21 06:42] LABS: Alanine Aminotransferase 30 U/L (10-49); Albumin, Serum 2.9 gm/dL (3.4-4.8); Albumin/Globulin Ratio 1.3 (1.2-2.2); Alkaline Phosphatase 180 U/L (46-116); Anion Gap 10 (7-16); Aspartate Amino Transferase 24 U/L (0-34); BUN/Creatinine Ratio 15 Ratio (12-20); Bilirubin,Total 0.3 mg/dL (0.3-1.2); Blood Urea Nitrogen 9 mg/dL (9-23); Calcium 9.0 mg/dL (8.3-10.6); Calcium (Corrected) 9.9 mg/dL (8.5-10.1); Carbon Dioxide 27.4 mMol/L (20.0-31.0); Chloride 104 mMol/L (98-107); Creatinine (Component) 0.6 mg/dL (0.6-1.3); Estimated Creatinine Clearance 137.5 mL/min (>60); Globulin 2.3 gm/dL (2.3-3.5); Glucose 102 mg/dL (74-106); Magnesium 1.9 mg/dL (1.6-2.6); Osmolality,Calculated 279 (275-295); Phosphorous 3.3 mg/dL (2.4-5.1); Potassium 3.2 mMol/L (3.4-5.1); Sodium 141 mMol/L (136-145); Total Protein 5.2 gm/dL (5.7-8.2); eGFR > 60 See Note
[2024-10-21] MEDS: PANTOPRAZOLE 40 MG TABLET PO (09:09)
[2024-10-21] MEDS: cefTRIAXone 2 GM in SODIUM CHLORIDE 0.9% (Popper) 50 ML IV (09:10)
--- NOTE | 2024-10-21 09:26 | ESPR_ITS ---
<Statement entered by Ruel Medrano MD - 10/23/24 15:15> I reviewed above note and agree with findings and plans. I have also personally examined the patient with medicine team and went over assessment and plan with medical team including internal medicine hospitalist and resident physician. <Statement entered by Hiram Goode MD - 10/21/24 13:18> Patient was examined and case was reviewed with team including attending physician. Note reviewed, I agree with most of its contents and agree with the patient's care as documented by Dr. Galloway Patient seen and evaluated the bedside. No overnight events reported. Vitals and labs reviewed. Patient having bowel movements. Per ID recommendations patient will receive ceftriaxone 2 g daily up until November 01 for treatment of bacteremia. PICC line order was placed. Anticipate discharge in the next 24-48 hours. Case discussed with my attending Dr. Marcela Goode MD PGY-2 Disclaimer: Despite multiple revisions, due to the dictation software being used, the document bellow may not be free of grammatical errors including phonetic/typographic errors. However, this does not deter from our commitment to providing health care in the patient's best interest in mind. Documentation for date of: 10/21/24 Subjective Subjective Interval history: Patient reports feeling well today. No overnight events. Her last bowel movement was three days ago, which she states is normal for her. She reports that the proton pump inhibitor is helping her acid reflux. ALONZO showed no evidence of vegetation. Per Dr. Nelson, the patient will receive IV Rocephin 2 grams daily through 11/01. A PICC line will be placed today, and discharge is planned for tomorrow. Exam Vital Signs Temp Pulse Resp BP Pulse Ox O2 Del Method 97.2 F 63 17 124/72 96 Room Air 10/21/24 04:00 10/21/24 04:00 10/21/24 04:00 10/21/24 04:00 10/21/24 04:00 10/21/24 04:00 Narrative Exam Physical Exam General: Awake and in no acute distress. Conversational and non-toxic appearing. Morbid obesity (BMI 47). HEENT: Normocephalic, atraumatic, mucous membranes moist. Heart: Regular rate and rhythm, no murmurs. Lungs: Clear to auscultation bilaterally, non-labored respirations, symmetric chest rise, no use of accessory muscles Abdomen: Soft, nondistended, nontender. No guarding or rebound tenderness. suprapubic tenderness present on palpation. Neurologic: Alert and oriented x3, no gross neurological deficit, and patient able to move all 4 extremities. Extremities: No edema. Skin: No rash. Resolving large ecchymoses on right arm. Objective Labs 10/21/24 04:57 10/21/24 04:57 Labs: Laboratory Results - last 24 hr 10/21/24 04:57 WBC 11.0 RBC 4.11 Hgb 12.7 Hct 37.1 MCV 90 MCH 30.9 MCHC 34.2 RDW Std Deviation 48.8 H Plt Count 237 Neut % (Auto) 55 Lymph % (Auto) 34 [place] % (Auto) 6 Eos % (Auto) 3 Baso % (Auto) 1 Neut # (Auto) 6.1 Lymph # (Auto) 3.7 [place] # (Auto) 0.7 Eos # (Auto) 0.3 Baso # (Auto) 0.1 Immature Gran # (Auto) 0.24 H Absolute Nucleated RBC 0.00 Immature Gran % 2 H Nucleated RBC % 0 Sodium 141 Potassium 3.2 L Chloride 104 Carbon Dioxide 27.4 Anion Gap 10 BUN 9 Creatinine 0.6 Estim Creat Clear Calc 137.5 eGFR > 60 BUN/Creatinine Ratio 15 Glucose 102 Calculated Osmolality 279 Calcium 9.0 Corrected Calcium 9.9 Phosphorus 3.3 Magnesium 1.9 Total Bilirubin 0.3 AST 24 ALT 30 Alkaline Phosphatase 180 H D Total Protein 5.2 L Albumin 2.9 L Globulin 2.3 Albumin/Globulin Ratio 1.3 Quality Measures Quality Measures none Advance care planning discussed with:: patient Assessment & Plan Assessment Current Active Medications: Generic Name Dose Route Start Last Admin Trade Name Freq PRN Reason Stop Dose Admin Acetaminophen 650 mg 10/16/24 22:37 Acetaminophen 325 Mg Tablet PO 11/15/24 22:36 Q6H PRN Mild Pain 1-3 or Fever >100.3 Hydrocodone Bitart/Acetaminophen 1 tab 10/16/24 22:37 10/21/24 00:54 Hydrocodone/Apap 5/325 Tablet PO 10/21/24 22:36 1 tab Q4HR PRN Administration PAIN SCALE 4-6 (Moderate Heparin Sodium (Porcine) 5,000 unit 10/17/24 09:00 10/21/24 09:10 Heparin Sod Inj 5000 Unit/Ml Vial SC 10/31/24 08:59 Not Given Q12HR VENKAT Hydromorphone HCl 1 mg 10/16/24 22:37 10/20/24 20:46 Hydromorphone Inj 2 Mg/Ml Vial IVP 10/21/24 22:36 1 mg Q6HR PRN Administration PAIN SCALE 7-10 (Severe Ceftriaxone Sodium 2 gm/ 50 mls @ 100 mls/hr 10/19/24 11:23 10/21/24 09:10 Sodium Chloride IV 10/26/24 11:22 100 mls/hr QDAY VENKAT Administration Ondansetron HCl 4 mg 10/16/24 22:37 Ondansetron Inj 2 Mg/Ml Inj 2 Ml IVP 11/15/24 22:36 Q6H PRN NAUSEA OR VOMITING Protocol Pantoprazole Sodium 40 mg 10/19/24 12:30 10/21/24 09:09 Pantoprazole 40 Mg Tablet PO 11/24/24 12:29 40 mg QDAY VENKAT Administration Sennosides 1 tab 10/17/24 20:01 Senna/Docusate Sod 1 Tab Tablet PO 11/16/24 20:00 QDAY PRN CONSTIPATION Protocol Plan 69-year-old female with past medical history of obesity, sciatica, and abdominal hernia presented for lower abdominal pain and urinary symptoms, admitted for sepsis secondary to urinary tract infection and pyelonephritis with acute kidney injury. #MSSA bacteremia (unclear source) Blood culture resulted with Staph. Repeat blood cultures are negative. Echo (10/18): Suboptimal study to comment on valvular vegetaions. Plan: - Continue Ceftriaxone 2 grams daily until 11/01/2024 via PICC line per ID recs. IV antibiotic started on 10/19. Will be discharged with home health. - Discontinued vancomycin. - PICC line will be placed today. #Sepsis, likely secondary to #Pyelonephritis vs #Urinary tract infection vs Met SIRS criteria w/ tachycardia, leukocytosis, evidence of end-organ damage with acute kidney injury. Initial suspicion was UTI/pyelonephritis, but now with GPC bacteremia of unclear source (urine culture negative, no obvious skin/soft tissue source, no pneumonia). Patient reports foul smelling urine, suprapubic pain. Denies CVA tenderness. CT abdomen: mild perinephric stranding, 5.6 cm umbilical hernia containing colon but no incarcerated bowel or bowel obstruction, no diverticulitis, no bowel obstruction. distended gallbladder. Given 5L LR --> lactic acid downtrending. Urine culture: negative. Plan: - Continue Ceftriaxone 2 grams (10/19-11/01). - Discontinued IV Vancomycin. - Monitor renal function and adjust antibiotics as needed. - Monitor for fever, flank pain, or worsening symptoms. #GERD (improving) Patient reports cough and an unusual taste in the mouth, which may be consistent with symptoms of GERD. Patients takes [place] at home. No reports of heartburn or chest pain at this time. Plan: - Continue Protonix 40 mg PO QD. - Monitor for improvement in cough and taste disturbance over the next several days. #Acute kidney injury (resolved) Baseline Cr 1. BUN 12, Cr 1.3. Most likely prerenal i/s/o sepsis and poor PO intake past several days. Plan: - Continue to monitor with daily CMP. - Strict I&Os. - Avoid nephrotoxins. - Renally dose medication. #Distended gallbladder #Umbilical hernia Distended gallbladder likely secondary to obesity vs cholecystitis less, Reilly negative. CT abdomen: 5.6 umbilical hernia containing colon but not incarcerated bowel or obstruction. Plan: - No surgical intervention required at this time, per Dr. Conley. - Follow up with bariatric surgeon as outpatient for repair of hernia and removal of gallbladder if becomes symptomatic. #Morbid Obesity Patient taking Semaglutide. Hemoglobin A1c 5.1. TSH 3.89 (wnl). Lipiad panel: cholesterol 110, HDL 35, LDL 53. Plan: - Hold home Semaglutide. - Follow up outpatient management. #Sciatic History Plan: - Conitor to monitor. Health Maintenance DVT prophylaxis: Heparin 5,000 U subQ Q12H GI prophylaxis: Protonix 40 mg PO QD Diet: Regular Lines: Peripheral IV CODE STATUS: FULL Patient plan of care was discussed with the senior resident, Dr. Saulo Goode, and attending physician, Dr. Medrano. Tito Galloway, DO PGY-1
--- NOTE | 2024-10-21 09:57 | ESPR_ITS ---
Subjective Subjective Interval history: f/u bc neg at 24 hrs. I will be away on Saturday and here on Saturday, the holiday.bc could have been contaminated. done at same time on arrival. to stop rx, you need pt permission Exam Vital Signs Temp Pulse Resp BP Pulse Ox O2 Del Method 97.6 F 86 17 129/72 95 Room Air 10/21/24 08:00 10/21/24 08:00 10/21/24 08:00 10/21/24 08:00 10/21/24 08:00 10/21/24 08:00 Narrative Exam limited visit today Objective - Internal Medicine Labs 10/21/24 04:57 10/21/24 04:57 Labs: Laboratory Results - last 24 hr 10/21/24 04:57 WBC 11.0 RBC 4.11 Hgb 12.7 Hct 37.1 MCV 90 MCH 30.9 MCHC 34.2 RDW Std Deviation 48.8 H Plt Count 237 Neut % (Auto) 55 Lymph % (Auto) 34 [place] % (Auto) 6 Eos % (Auto) 3 Baso % (Auto) 1 Neut # (Auto) 6.1 Lymph # (Auto) 3.7 [place] # (Auto) 0.7 Eos # (Auto) 0.3 Baso # (Auto) 0.1 Immature Gran # (Auto) 0.24 H Absolute Nucleated RBC 0.00 Immature Gran % 2 H Nucleated RBC % 0 Sodium 141 Potassium 3.2 L Chloride 104 Carbon Dioxide 27.4 Anion Gap 10 BUN 9 Creatinine 0.6 Estim Creat Clear Calc 137.5 eGFR > 60 BUN/Creatinine Ratio 15 Glucose 102 Calculated Osmolality 279 Calcium 9.0 Corrected Calcium 9.9 Phosphorus 3.3 Magnesium 1.9 Total Bilirubin 0.3 AST 24 ALT 30 Alkaline Phosphatase 180 H D Total Protein 5.2 L Albumin 2.9 L Globulin 2.3 Albumin/Globulin Ratio 1.3 Assessment & Plan A&P Narrative staph aureus bacteremia on bc done at same time in ED you have changed to rocephin already, I will be away saturday and back saturday for f/u if needed, but ok for rocephin 2 gm/day thru 11/01 if bc from 10/19 remain neg.if bc 10/19 pos for gpc, then get more the next day and a rosemarie and I can see on saturday Time Spent With Patient Time: Total time spent is greater than 50% in coordination of care (as documented) at patient's floor/unit and/or counseling patient:
[2024-10-21] MEDS: HYDROmorphone INJ 2 MG/ML VIAL 1 MG IVP ×2 (10:57→17:13)
--- NOTE | 2024-10-21 11:45 | PC.NURSE ---
Notified Dr. Galloway of Blood culture results from 10/19/24 and most recent ID dictation. Per MD PICC line will continue to be indicated.
--- NOTE | 2024-10-21 13:07 | PC.CC ---
Addendum entered by Nguyen Haas RN 10/21/24 13:56: [facility] accepted and booked. Addendum entered by Nguyen Haas RN 10/21/24 13:12: [facility] accepted and booked. Original Note: Initial HH and infusion ref sent out, waiting for responses. Will need to send complete packet when pt is ready to dc
[2024-10-21] MEDS: HEPARIN SOD LOCK SYR 100 UNIT/ML 500 UNIT STFIELD (13:13)
[2024-10-21] MEDS: LIDOCAINE INJ PF 1% 30 ML VIAL INFL (13:13)
[2024-10-22] VITALS: BP 142/79; PULSE 85; PULSE 91; RESP 20; TEMP 36.8; O2SAT 93
[2024-10-22 04:00] VITALS: BP 115/70; PULSE 88; RESP 20; TEMP 36.6; O2SAT 98
[2024-10-22 06:17] LABS: Basophils # (Auto) 0.1 Thou/mm3 (0.0-0.2); Basophils % (Auto) 1 % (0-2.5); Eosinophils # (Auto) 0.2 Thou/mm3 (0.0-0.5); Eosinophils % (Auto) 2 % (0-10); Hematocrit 39.3 % (36.0-46.0); Hemoglobin 13.2 g/dL (12.0-16.0); Immature Granulocytes Auto 0.51 Thou/mm3 (0.00-0.00); Lymphocytes # (Auto) 4.3 Thou/mm3 (1.0-4.8); Lymphocytes % (Auto) 34 % (10-50); Mean Corpuscular HGB Conc 33.6 g/dl (31.0-37.0); Mean Corpuscular Hemoglobin 30.6 pg (25.0-35.0); Mean Corpuscular Volume 91 fL (80-100); Monocytes # (Auto) 0.7 Thou/mm3 (0.0-0.8); Monocytes % (Auto) 6 % (0-12); Neutrophils # (Auto) 6.9 Thou/mm3 (1.8-7.7); Neutrophils % (Auto) 54 % (37-80); Nucleated Red Blood Cell # 0.00 Thou/mm3 (0.00-0.00); Nucleated Red Blood Cell % 0 /100 WBC (0); RDW Standard Deviation 48.5 fL (36.4-46.3); Red Blood Count 4.32 Miln/mm3 (4.00-5.20); White Blood Count 12.8 Thou/mm3 (3.6-11.0)
[2024-10-22 06:37] LABS: Alanine Aminotransferase 30 U/L (10-49); Albumin, Serum 3.1 gm/dL (3.4-4.8); Albumin/Globulin Ratio 1.2 (1.2-2.2); Alkaline Phosphatase 186 U/L (46-116); Anion Gap 10 (7-16); Aspartate Amino Transferase 30 U/L (0-34); BUN/Creatinine Ratio 14 Ratio (12-20); Bilirubin,Total 0.4 mg/dL (0.3-1.2); Blood Urea Nitrogen 7 mg/dL (9-23); Calcium 9.2 mg/dL (8.3-10.6); Calcium (Corrected) 9.9 mg/dL (8.5-10.1); Carbon Dioxide 25.1 mMol/L (20.0-31.0); Chloride 103 mMol/L (98-107); Creatinine (Component) 0.5 mg/dL (0.6-1.3); Estimated Creatinine Clearance 165.0 mL/min (>60); Globulin 2.5 gm/dL (2.3-3.5); Glucose 89 mg/dL (74-106); Magnesium 1.9 mg/dL (1.6-2.6); Osmolality,Calculated 272 (275-295); Phosphorous 3.4 mg/dL (2.4-5.1); Potassium 3.8 mMol/L (3.4-5.1); Sodium 138 mMol/L (136-145); Total Protein 5.6 gm/dL (5.7-8.2); eGFR > 60 See Note
[2024-10-22 07:16] LABS: Platelet Count 266 Thou/mm3 (140-440)
[2024-10-22 08:00] VITALS: BP 137/74; PULSE 102; PULSE 93; RESP 19; TEMP 36.5; O2SAT 95
--- NOTE | 2024-10-22 09:33 | ESDS_ITS ---
<Statement entered by Hiram Goode MD - 10/22/24 14:59> Patient was examined and case was reviewed with team including attending physician. Note reviewed, I agree with most of its contents and agree with the patient's care as documented by Dr. Galloway Case discussed with my attending Dr. Marcela Goode MD PGY-2 Disclaimer: Despite multiple revisions, due to the dictation software being used, the document bellow may not be free of grammatical errors including phonetic/typographic errors. However, this does not deter from our commitment to providing health care in the patient's best interest in mind. Planned Discharge Date 10/22/24 DS: Providers Provider Date of admission: 10/16/24 22:37 Primary care physician: Cnidy Mendenhall MD Admitting Provider: Sarwat Bergman MD Attending Provider on Admission: Ruel Medrano MD Consults: 10/16/24 21:54 Consult to General Surgery Stat Comment: Consulting Provider: Starr Conley 10/17/24 10:45 [facility] Referral - Transportation Routine Comment: Positive screening for transportation needs. 10/19/24 08:44 Consult to Infectious Diseases Urgent Comment: GPC bacteremia Consulting Provider: Rock Nelson Attending Provider on DC: Ruel Medrano MD Discharging Provider: Tito Galloway DO Anticipated date of discharge: 10/22/24 DS: Diagnosis Problem List Completed Was Problem List Reviewed/Reconciled?: Yes Hospital Course Hospital Course Hospital course: 69-year-old female with a history of morbid obesity, sciatica, and a chronic umbilical hernia who was admitted on 10/16 with suprapubic abdominal pain, foul- smelling urine, and urinary frequency. She met SIRS criteria with leukocytosis, tachycardia, and lactic acidosis, and was diagnosed with sepsis likely secondary to a urinary tract infection and pyelonephritis, complicated by acute kidney injury. Initial workup included leukocytosis, creatinine (1.3 from baseline 0.9), and a CT abdomen showing mild perinephric stranding, a non-incarcerated 5.6 cm umbilical hernia, and a distended gallbladder. She was treated with IV fluids, Zosyn, and later transitioned to Ceftriaxone after blood cultures grew gram-positive cocci consistent with MSSA bacteremia. Vancomycin was discontinued once sensitivities were confirmed, and repeat blood cultures were negative. Echo was suboptimal study to comment on valvular vegetaions. The patient remained afebrile with down-trending leukocytosis and improved renal function. ID recommended a 14-day course of IV Ceftriaxone through 11/01, to be completed via a PICC line placed prior to discharge. Her suprapubic pain improved, GERD symptoms responded to PPI therapy, and no surgical intervention was required for the hernia or gallbladder. She was discharged in stable condition with home health for IV antibiotics. Patient is medically and physically stable for discharge. Diagnosis: #MSSA bacteremia (unclear source) #Sepsis #Pyelonephritis #Urinary tract infection #GERD #Acute kidney injury #Distended gallbladder #Umbilical hernia Discharge Plan: Follow-up with your primary care physician within 1 week of discharge. You have been prescribed Ceftriaxone 2 g IV daily for management of bacteremia. Please take this medication until November 01, 2024. Should your symptoms recur or worsen patient is instructed to return to the ER. Case discussed with my senior resident Dr. Saulo Goode and with my attending Dr. Medrano. Tito Galloway DO PGY 1 Status at Discharge Overall status at discharge: patient is progressing back to baseline Time Spent with Patient Time attestation: Total time spent providing and/or coordinating discharge services: Time spent: Greater than 30 minutes Home Health Home Health Referral Orders: 10/21/24 10:40 Home Health Referral Routine Reason For Exam: IV antibiotics Home-Bound The patient must either because of illness or injury, need the aid of supportive devices such as crutches, canes, wheelchairs, and walkers; the use of special transportation ; or the assistance of another person in order to leave their place of residence; OR have a condition such that leaving his or her home is medically contraindicated. In addition, the patient also meets the following criteria: patient is normally unable to leave the home and leaving home requires considerable taxing effort. Addendum to Home Health Certification Practitioner's Certification: I certify that the patient has been under my care in the hospital and the care of attending physician (see below). We had a [id number] encounter on (see date below). My clinical findings indicate that the patient is home bound per the above criteria and the Home Health Services noted in these orders are medically necessary. The primary reason for the ojul-[id number] encounter is related to the fact that the patient requires home health services. Date Certifying [id number] Physician Encounter: 10/16/24 Physician's Name who will Assume Oversight for Services: Cindy Mendenhall Physician's Phone No.who will Assume Oversight for Service: [employer] - Community Resources: No PT to Evaluate: No PT to evaluate and provide a treatmnet plan to increase patient's mobility and strength. Wound Care: per wound nurse IV Therapy: Yes IV Medication: Rocephin IV Dose: 2grams IV Frequency: daily IV Stop Date: 11/01/24 Discontinue PICC Line Once Treatment Complete: Yes RN Safety Evaluation: Yes RN to evaluate and create a plan of care that will produce positive outcomes. Palliative Treatment: No Palliative treatment and evaluate the need for hospice. Home Health Aide - Personal Care: No Home Health Aide to assist with any ADL's. Exam Vital Signs Temp Pulse Resp BP Pulse Ox O2 Del Method O2 Flow Rate 97.7 F 93 19 137/74 H 95 Room Air 2 10/22/24 08:00 10/22/24 08:00 10/22/24 08:00 10/22/24 08:00 10/22/24 08:00 10/22/24 08:00 10/22/24 04:00 Narrative Exam Physical Exam General: Awake and in no acute distress. Conversational and non-toxic appearing. Morbid obesity (BMI 47). HEENT: Normocephalic, atraumatic, mucous membranes moist. Heart: Regular rate and rhythm, no murmurs. Lungs: Clear to auscultation bilaterally, non-labored respirations, symmetric chest rise, no use of accessory muscles Abdomen: Soft, nondistended, nontender. No guarding or rebound tenderness. suprapubic tenderness present on palpation. Neurologic: Alert and oriented x3, no gross neurological deficit, and patient able to move all 4 extremities. Extremities: No edema. Skin: No rash. Resolving large ecchymoses on right arm. PICC line on right arm. Discharge Plan Plan Patient Disposition: Home w/HOME HEALTH Patient condition on transfer: Stable Care Plan Goals: Follow-up with your primary care physician within 1 week of discharge. You have been prescribed Ceftriaxone 2 g IV daily for management of bacteremia. Please take this medication until November 01, 2024. Should your symptoms recur or worsen patient is instructed to return to the ER. Prescriptions/Referrals Prescriptions/Med Rec: New ceftriaxone 2 gram recon soln 2 g IV QDAY tramadol 50 mg tablet 50 mg PO Q8H PRN (Reason: pain) Qty: 9 0RF Continued Ozempic 2 mg/dose (8 mg/3 mL) pen injector 2 mg subcut QWEEK Referrals: Cindy Mendenhall MD [Primary Care Provider] - Patient/Caregiver Discharge Instructions Education Materials: Urinary Tract Infections in Women Print Language: Yakut Stand Alone Forms: Maryann Award Info., Patient Portal Info Letter Discharge Order Discharge Orders: Discharge (Routine); Ordered 10/22/24 Ordered By: Hiram Goode Quality Discharge Quality Measures none
[2024-10-22] MEDS: PANTOPRAZOLE 40 MG TABLET PO (09:51)
[2024-10-22] MEDS: cefTRIAXone 2 GM in SODIUM CHLORIDE 0.9% (Popper) 50 ML IV (09:51)
[2024-10-22 12:00] VITALS: BP 140/79; PULSE 94; RESP 18; TEMP 36.5; O2SAT 95
--- NOTE | 2024-10-22 12:47 | PC.CM ---
Patient will be discharged today with [facility] and [facility] to follow. [facility] will deliver meds today and [facility] will open patient tomorrow 10/22. Sally HAMMOND aware.
[2024-10-22 16:00] VITALS: BP 140/82; PULSE 111; PULSE 93; RESP 17; TEMP 36.3; O2SAT 95
[2024-10-23 07:02] LABS: Gamma Glutamyl Transpeptidase* 91 U/L (3-65)
== END 2024-10-22 16:50 | disposition home health service (06) | DRG 872 ==
LOC: SERX 21:59 → SERHOLD 22:56 → S3SX 10-17 08:45
PROVIDERS: Internal Medicine Infectious Disease; Physician Assistant Medical; Admitting Provider Student in an Organized Health Care Education/Training Program; Emergency Provider Emergency Medicine; PCP Family Medicine; Visit Provider Internal Medicine
DX: A41.01 Sepsis due to Methicillin susceptible Staphylococcus aureus (principal); N17.9 Acute kidney failure, unspecified; Z68.42 Body mass index [BMI] 45.0-49.9, adult; N12 Tubulo-interstitial nephritis, not specified as acute or chronic; E87.20 Acidosis, unspecified; R65.20 Severe sepsis without septic shock; E66.01 Morbid (severe) obesity due to excess calories; K42.9 Umbilical hernia without obstruction or gangrene; K82.8 Other specified diseases of gallbladder; B96.89 Other specified bacterial agents as the cause of diseases classified elsewhere; K21.9 Gastro-esophageal reflux disease without esophagitis; K74.60 Unspecified cirrhosis of liver; Z85.828 Personal history of other malignant neoplasm of skin; Z90.710 Acquired absence of both cervix and uterus
CPT/HCPCS: 36415; 71045; 74177; 76705; 80053; 80061; 80202; 81001; 82105; 82436; 82570; 82977; 83036; 83605; 83690; 83735; 83880; 84100; 84133; 84300; 84443; 85025; 86803; 87040; 87077; 87081; 87086; 87186; 93225; 93306; 96361; 96365; 96366; 96375; 99284; A4649; C1751; C1894; J0696; J1171; J1642; J2270; J2405; J2543; J3373; J3375; J3490; J7030; J7050; J7120; J7999; Q9967; A9270

== ENCOUNTER → 2024-11-06 | Outpatient (CLI) | payer MEDICARE, OTHER, SELFPAY ==
[2024-11-06 14:38] LABS: Collection Type, Urine Clean Catch; RBC,Urine 0 /hpf (0-3); WBC,Urine 0 /hpf (0-5)
[2024-11-06 16:27] LABS: Bilirubin,Urine Negative (Negative); Blood,Urine Negative (Negative); Clarity,Urine Turbid (Clear/Hazy); Color,Urine Yellow (Lt Yel-Yel); Glucose, Urine Negative (Negative); Hyaline Casts,Urine < 1 /hpf (0-1); Ketones,Urine Negative (Negative); Leukocyte Esterase,Urine Negative (Negative); Nitrite,Urine Negative (Negative); PH,Urine 6.0 (5.0-7.0); Protein,Urine Negative (Neg - Trace); Specific Gravity,Urine 1.017 (1.001-1.035); Squamous Epithelial Cell,Urine 14 /hpf (0-5); Urobilinogen,Urine 2.0 mg/dL (0.0-1.0)
== END | disposition home or self-care (01) ==
LOC: SLDO 14:28
PROVIDERS: PCP Physician Assistant; Referring Provider Physician Assistant; Visit Provider Physician Assistant
DX: N39.0 Urinary tract infection, site not specified (principal)
CPT/HCPCS: 81001; 87077; 87086; 87186

== ENCOUNTER → 2024-11-24 | Outpatient (CLI) | payer MEDICARE, OTHER, SELFPAY ==
[2024-11-24 14:22] LABS: Collection Type, Urine Clean Catch
[2024-11-24 17:01] LABS: Bacteria,Urine Rare; Bilirubin,Urine Negative (Negative); Blood,Urine Negative (Negative); Calcium Oxalate Crystals,Urine 3+; Clarity,Urine Turbid (Clear/Hazy); Color,Urine Yellow (Lt Yel-Yel); Glucose, Urine Negative (Negative); Hyaline Casts,Urine < 1 /hpf (0-1); Ketones,Urine Negative (Negative); Leukocyte Esterase,Urine Positive (Negative); Nitrite,Urine Negative (Negative); PH,Urine 6.0 (5.0-7.0); Protein,Urine Trace (Neg - Trace); RBC,Urine 4 /hpf (0-3); Specific Gravity,Urine 1.022 (1.001-1.035); Squamous Epithelial Cell,Urine 5 /hpf (0-5); Urobilinogen,Urine Negative mg/dL (0.0-1.0); WBC,Urine 3 /hpf (0-5)
== END | disposition home or self-care (01) ==
LOC: SLDO 14:16
PROVIDERS: Referring Provider Physician Assistant; Visit Provider Physician Assistant
DX: N39.0 Urinary tract infection, site not specified (principal)
CPT/HCPCS: 81001; 87086